=== PATIENT | male | born 1950 | race Caucasian/White ===

== ENCOUNTER 2019-01-17 15:14 | Inpatient (IN) | payer MEDICARE ==
[2019-01-17] MEDS: NA CHLORIDE 0.9% 250 ML IV PRN ×2 (16:32→17:14)
[2019-01-17] MEDS ORDERED: AZITHROMYCIN IV 500 MG in NA CHLORIDE 0.9% 250 ML IVPB SCH (17:00)
[2019-01-17] MEDS ORDERED: CEFTRIAXONE 1 GM/NS 50 ML 1 GM/50 ML BAG IV SCH (17:00)
[2019-01-17 17:12] VITALS: BMI 19.2
[2019-01-17 17:12] LABS: Absolute Lymphocytes (CBC) 0.4 K/uL (0.7-4.9); Basophils % 0.1 % (0-1.3); Hematocrit 46.6 % (39.6-49.0); MPV 9.3 fL (7.6-11.3); RBC Red Blood Cell Count 4.65 M/uL (4.33-5.43)
--- NOTE | 2019-01-17 17:16 | RAD REPORT ---
EXAM DESCRIPTION: RAD - Chest Single View - 01/17/2019 5:05 pm CLINICAL HISTORY: Pneumonia COMPARISON: October 26 TECHNIQUE: AP portable chest image was obtained 1703 hour . FINDINGS: Dense consolidation is present in the left midlung field. Scattered interstitial and alveo lar opacities are present in the lung parenchyma along the superior and inferior margins. Right lung field is clear of acute infiltrate. Focal upper lung field scarring changes are stable. Heart and vasculature are normal. No measurable pleural effusion and no pneumothorax. No acute bony abnormality seen. No acute aortic findings suspected. IMPRESSION: Moderately large densely consolidated pneumonia left midlung field.
[2019-01-17 17:23] LABS: Albumin 3.2 g/dL (3.4-5.0); Bilirubin Total 1.2 mg/dL (0.2-1.0); Potassium 3.7 mmol/L (3.5-5.1); Protein, Total 7.4 g/dL (6.4-8.2)
[2019-01-17] MEDS: CEFTRIAXONE/SWI 1gm 1 GM/10 ML SYR IV SCH (17:49)
[2019-01-17] MEDS: ALBUTEROL 2.5 MG/3 ML NEB SOL NEB SCH ×3 (18:00→20:00)
[2019-01-17] MEDS: IPRATROPIUM BROM 0.5MG/2.5ML NEB SCH ×3 (18:00→20:00)
[2019-01-17] MEDS ORDERED: INFLUENZA VACCINE (for 3y+) 0.5 ML DOSE IMVAC ONE (19:00)
[2019-01-17] MEDS ORDERED: POTASSIUM CL SA 10 MEQ TAB PO ONE (20:00)
[2019-01-17] MEDS: NA CHLORIDE 0.9% 1,000 ML IV SCH (20:29)
[2019-01-17] MEDS: HEPARIN 5000 UNIT/ML 1 ML VIAL SQ SCH (20:30)
[2019-01-17 20:47] LABS: Blood Morphology Comment NOT SEEN (NOT SEEN); Platelet Estimate ADEQ
[2019-01-17 21:07] LABS: Urine Appearance CLEAR; Urine Bilirubin NEGATIVE (NEG); Urine Blood 2+ (NEG); Urine Color DK YELLOW; Urine Glucose NEGATIVE (NEG); Urine Protein 1+ (NEG); Urine Specific Gravity 1.025 (1.005-1.030)
[2019-01-17 21:20] LABS: Urine Bacteria <20 /HPF (NONE SEEN); Urine Culture Reflex Order REFLEXED
[2019-01-18] MEDS: ALBUTEROL 2.5 MG/3 ML NEB SOL NEB SCH ×4 (01:30→20:00)
[2019-01-18] MEDS: IPRATROPIUM BROM 0.5MG/2.5ML NEB SCH ×4 (01:30→19:22)
[2019-01-18] MEDS: NA CHLORIDE 0.9% 250 ML IV PRN ×3 (02:30→03:42)
[2019-01-18] MEDS ORDERED: Levofloxacin500mg IV 500 MG/100 ML BAG IV ONE ×2 (02:32→02:34)
[2019-01-18] MEDS ORDERED: ACETAMINOPHEN 500 MG TAB ONE (02:38)
[2019-01-18] MEDS ORDERED: GUAIFENESIN/DM 5 ML UCUP PO PRN (02:38)
[2019-01-18] MEDS ORDERED: ACETAMINOPHEN 500 MG TAB PO PRN (02:38)
[2019-01-18] MEDS: NA CHLORIDE 0.9% 1,000 ML IV SCH ×3 (04:00→18:30)
[2019-01-18] MEDS: CEFTRIAXONE/SWI 1gm 1 GM/10 ML SYR IV SCH ×2 (04:51→16:28)
--- NOTE | 2019-01-18 04:53 | HP ---
Date of Admission: 01/17/2019 Chief Complaint: Chest pain. History Of Present Illness: This is a 68-year-old male patient came into office with his today as he was not feeling good. Patient reported that he is having pain on the left side of his chest in the left parasternal region and left mid chest. This pain is going on for last 2 days and he report s that the pain gets worse with breathing, and every time he breathes, he has this pain. Denies any fall or injury. No rash. He is having some cough, congestion, coughing up some mucus, does not know what color, and also has fever, chills, and has generalized weakness going on for last 2 days. Afte r I evaluated him, I was concerned about possibility of pneumonia and he was admitted to the hospital . Review of Systems: Constitutional: As mentioned above. Respiratory: As mentioned above. All other systems reviewed and negative. Medications: List reviewed. Allergies: HYDROCODONE. Past Medical History: Significant for COPD, hypertension, hyperlipidemia. Past Surgical History: Cholecystectomy, back surgery. Family History: Significant for father had COPD, lung cancer. Mother had stroke and dementia. Social History: , lives at home with . Positive for smoking. Use of alcohol negative. Physical Examination: Vital Signs: When I saw him at office, his weight was 139.6 pounds, temperature 97.1, blood pressure 100/65, heart rate 93, and respiratory rate 18. Upon admission, his blood pressure was 80/46, oxyge n saturation 93%, height 5 feet 11 inches, weight 138 pounds. General: Patient appears weaker than normal, not in any respiratory distress. HEENT: Head atraumatic, normocephalic. Conjunctivae nonerythematous. Sclerae white. Mouth, no thr ush or edema noted. Ears/Nose, no mass, lesion, discharge noted. Neck: Supple. No JVD, lymph nodes, bruit, thyromegaly noted. Lungs: Slightly diminished air entry in the left lung oh compared to right side. Not using any accessory muscles of respiration. Heart: Normal heart sounds, no murmur or gallop. Abdomen: Soft, bowel sounds normal. No guarding, rigidity, tenderness, mass, hepatosplenomegaly, di stention, or bruit noted. Extremities: No leg edema. No calf tenderness. Skin: No rash, ulcer, cellulitis. Lymphatics: No lymph node enlargement in neck, supraclavicular, infraclavicular region. Neuro: No focal neurological deficit. Chest: Unremarkable. External Genitalia: Deferred. Rectal: Deferred. Laboratory Data: Sodium 137, potassium 3.7, chloride 102, bicarb 24, BUN 42, creatinine 2.99, glucos e 108. Lactic acid 3.3. Liver function tests unremarkable. Procalcitonin 22.33. White count 19.9, hemoglobin 16, platelets 182. Chest x-ray shows moderately large densely consolidated pneumonia, le ft midlung field. Impression: 1.Pneumonia. 2.Acute renal failure. 3.Volume depletion. 4.Rule out sepsis. 5.Chronic obstructive pulmonary disease, with acute exacerbation. 6.Hypertension. 7.Hyperlipidemia. Plan: Admit patient to hospital for further evaluation and management of this problem. Patient is a ppropriate for inpatient and is expected to spend 2 midnights in hospital. We will go ahead and give IV fluid per order. Soon after his arrival to hospital, total 500 cc of IV fluid bolus was given an d we will continue IV fluid per order. Blood culture was done. We will follow up on culture results . We will go ahead and start empiric antibiotic, ceftriaxone and azithromycin. Home medications carlton l be continued per order. Nebulizer treatment will be given. We will repeat blood work tomorrow mor radha. DVT prophylaxis with heparin will be given per order. I did go back to hospital this evening and explained to patient regarding plan of treatment as well as all the test results. Patient's ches t pain that he presented with is due to pleurisy and that should improve as pneumonia gets better. D etails and plan of treatment discussed with patient. TEJA/MODL Voice ID: [id number]
[2019-01-18 06:18] LABS: Potassium 3.5 mmol/L (3.5-5.1)
[2019-01-18 06:45] LABS: Absolute Lymphocytes (CBC) 0.3 K/uL (0.7-4.9); Basophils % 0.3 % (0-1.3); Lymphocytes % 2.6 % (15.3-44.8); MPV 9.4 fL (7.6-11.3); RBC Red Blood Cell Count 4.14 M/uL (4.33-5.43)
[2019-01-18] MEDS ORDERED: METOPROLOL TARTRATE 5 MG/5 ML INJ IV STA (08:35)
[2019-01-18] MEDS ORDERED: POTASSIUM CL SA 10 MEQ TAB PO ONE (09:00)
[2019-01-18] MEDS ORDERED: ALPRAZOLAM 0.25 MG TABLET PO PRN (09:14)
[2019-01-18] MEDS: METHYLPREDNISOLONE 40 MG INJ IV SCH ×3 (09:24→19:41)
[2019-01-18] MEDS: HEPARIN 5000 UNIT/ML 1 ML VIAL SQ SCH ×2 (09:24→19:53)
[2019-01-18] MEDS ORDERED: IPRATROPIUM BROM 0.5MG/2.5ML NEB ONE (10:44)
[2019-01-18 10:53] LABS: Blood Morphology Comment NOT SEEN (NOT SEEN)
[2019-01-18 10:54] LABS: Platelet Estimate ADEQ
[2019-01-18] MEDS ORDERED: METOPROLOL TARTRATE 5 MG/5 ML INJ IV PRN (10:57)
--- NOTE | 2019-01-18 11:01 | EKG ---
Test Date: 2019-01-18 Test Time: 08:27:16 Blast Furnace Helper: ARSENIO MEASUREMENT RESULTS: Intervals: Rate: 165 OR: 122 QRSD: 66 QT: 292 QTc: 483 [place]: P: 84 OR: 122 QRS: -55 T: 99 INTERPRETIVE STATEMENTS: Sinus tachycardia Left anterior fascicular block Inferior infarct, age undetermined T wave abnormality, consider lateral ischemia Abnormal ECG Compared to ECG 07/16/2013 07:56:55 Left anterior fascicular block now present Myocardial infarct finding now present T-wave abnormality now present Possible ischemia now present Sinus rhythm no longer present Electronically Signed On 01-18-19 11:00:56 CDT by Chance Evans
--- NOTE | 2019-01-18 11:01 | EKG ---
Test Date: 2019-01-18 Test Time: 08:30:53 Recreation Therapy Teacher: ARSENIO MEASUREMENT RESULTS: Intervals: Rate: 163 UT: 120 QRSD: 66 QT: 296 QTc: 487 [place]: P: 91 UT: 120 QRS: -50 T: 101 INTERPRETIVE STATEMENTS: Sinus tachycardia Left anterior fascicular block Inferior infarct, age undetermined ST & T wave abnormality, consider lateral ischemia Abnormal ECG Compared to ECG 01/18/2019 08:27:16 ST (T wave) deviation now present T-wave abnormality no longer present Myocardial infarct finding still present Possible ischemia still present Electronically Signed On 01-18-19 11:00:51 CDT by Chance Evans
--- NOTE | 2019-01-18 12:02 | RAD REPORT ---
EXAM DESCRIPTION: [facility] Single View01/18/2019 11:48 am CLINICAL HISTORY: Shortness of breath COMPARISON: January 17 FINDINGS: Mild worsening in the extensive left lung consolidation Right lung appears clear Lungs are hyperaerated Heart is normal size IMPRESSION: Mild worsening in the left lung consolidation consistent with pneumonia
[2019-01-18] MEDS ORDERED: PROPOFOL 1,000 MG/100 ML VIAL IV ONE (12:14)
[2019-01-18] MEDS ORDERED: MIDAZOLAM HCL 2 MG/2 ML INJ ONE (12:16)
[2019-01-18] MEDS ORDERED: Pharmacy Consult 1 EA XX PRN (12:16)
[2019-01-18] MEDS ORDERED: FENTANYL CITR 100 MCG/2 ML IV ONE (12:24)
--- NOTE | 2019-01-18 12:28 | ECHO ---
HEIGHT: 5 ft 11 in WEIGHT: 138 lb 0 oz DATE OF STUDY: 01/18/[address]: Jaswinder Do MD 2-DIMENSIONAL: YES M.MODE: YES DOPPLER: YES COLOR FLOW: YES TDS: YES PORTABLE: YES DEFINITY: NO BUBBLE STUDY: NO DIAGNOSIS: SUPRAVENTRICULAR TACHYCARDIA, SHORTNESS OF BREATH CARDIAC HISTORY: CATHERIZATION: NO SURGERY: NO PROSTHETIC VALVE: NO PACEMAKER: NO MEASUREMENTS (cm) DIASTOLIC (NORMALS) SYSTOLIC (NORMALS) IVSd 1.1 (0.6-1.2) LA Diam 2.6 (1.9-4.0) LVEF 60-69% LVIDd 3.7 (3.5-5.7) LVIDs 2.9 (2.0-3.5) %FS 23% LVPWd 1.1 (0.6-1.2) Ao Diam 2.5 (2.0-3.7) 2 DIMENSIONAL ASSESSMENT: RIGHT ATRIUM: NORMAL LEFT ATRIUM: RIGHT VENTRICLE: NORMAL LEFT VENTRICLE: TRICUSPID VALVE: NORMAL MITRAL VALVE: PULMONIC VALVE: NORMAL AORTIC VALVE: PERICARDIAL EFFUSION: NONE AORTIC ROOT: LEFT VENTRICULAR WALL MOTION: NORMAL DOPPLER/COLOR FLOW: IMPAIRED LEFT VENTRICULAR RELAXATION. TRACE TRICUSPID REGURGITATION. NORMAL RIGHT VENTRICULAR SYSTOLIC PRESSURE. COMMENTS: NORMAL 2D ECHOCARDIOGRAM. IMPAIRED LEFT VENTRICULAR RELAXATION. TRACE TRICUSPID REGURGITATION. SINUS TACHYCARDIA 140 BEATS PER MINUTE. TECHNOLOGIST: Kelvin MENDEZ
[2019-01-18] MEDS ORDERED: LORazepam 2 MG/ML VIAL IV ONE (12:34)
--- NOTE | 2019-01-18 12:49 | P.CNS ---
Date of Consult: 01/18/19 Reason for Consult: Respiratory failure with pneumonia Chief Complaint: Shortness of breath History of Present Illness: Patient is 68 years of age became worse past 2 days started having worsening shortness of breath chest discomfort has a history of COPD admitted to the hospital with respiratory failure is currently on BiPAP was found to have a dense consolidation in the left mid zone. Patient is compliant with his bronchodilators takes Advair and Spiriva still smokes very anxious tachypneic on a BiPAP Allergies hydrocodone Adverse Reaction (Verified 01/17/19 18:06) Nausea/Vomiting Home Medications: Metoprolol Tartrate [Lopressor*] 1 tab PO BID 07/15/13 Tiotropium [place] [Spiriva] 1 spray IH DAILY #1 07/17/13 Amlodipine [Norvasc] 10 mg PO DAILY 01/17/19 Cyanoco/FA/Pyri [Folbic] 1 tab PO DAILY 01/17/19 Fluticasone/Salmeterol [Advair 250-50 Diskus] 1 each IH BID 01/17/19 Ranitidine [Zantac] 150 mg PO DAILY PRN 01/17/19 - Past Medical/Surgical History Diabetic: No -: COPD -: Hypertension -: Back Surgery 2000 - Social History Smoking Status: Current every day smoker Alcohol use: Yes CD- Drugs: No Caffeine use: Yes Place of Residence: Home Review of Systems General: Malaise ENT: Nose Discharge Respiratory: Shortness of Breath Cardiovascular: Chest Pain Physical Examination Temp Pulse Resp BP Pulse Ox 97.5 F 134 H 34 H 107/66 97 01/18/19 04:00 01/18/19 10:00 01/18/19 10:00 01/18/19 10:00 01/18/19 10:00 General: Alert, Moderate distress Neck: 2+ carotid pulse no bruit Respiratory: Clear to auscultation bilaterally, Crackles/rales (Crackles on the left side) Cardiovascular: No edema, Regular rate/rhythm, Normal S1 S2 Laboratory Data (last 24 hrs) 01/18/19 06:26: WBC 12.8 H D, Hgb 14.4, Hct 41.0, Plt Count 156 01/18/19 05:25: Sodium 135 L, Potassium 3.5, BUN 41 H, Creatinine 2.00 H, Glucose 101 01/17/19 16:50: Sodium 137, Potassium 3.7, BUN 42 H, Creatinine 2.99 H, Glucose 108 H, Magnesium 2.0, Total Bilirubin 1.2 H, AST 37, ALT 32, Alkaline Phosphatase 96 01/17/19 16:50: WBC 19.9 H, Hgb 16.0, Hct 46.6, Plt Count 182 - Problems (1) Respiratory failure Current Visit: Yes Status: Acute Plan: Patient is in respiratory failure with hypoxemia hypercapnia I suspect that he has respiratory alkalosis with a metabolic acidosis. Also has a dense consolidation in the left mid zone trial of fentanyl Ativan he may need to be intubated patient's white count is elevated creatinine is also high I have added vancomycin maximize bronchodilator therapy patient is on IV fluids present at the bedside all laboratory data and x-rays reviewed Qualifiers: Chronicity: acute on chronic
[2019-01-18] MEDS ORDERED: VANCOMYCIN 1.25 GM in NA CHLORIDE 0.9% 250 ML IVPB SCH (13:00)
[2019-01-18] MEDS ORDERED: NA CHLORIDE 0.9% 250 ML IV PRN (13:01)
--- NOTE | 2019-01-18 13:01 | P.OP ---
Date of Service: 01/18/19 (Endotracheal intubation size 7 2) Findings and Operative Technique Patient is 68 years of age admitted with respiratory failure respiratory acidosis left-sided pneumonia and developed respiratory distress failed BiPAP hence the reason for intubation After informing the patient and the family members he was intubated using a size 7-1/2 endotracheal tube intubation was accomplished on 1st attempt without any difficulty difficult to vocal of visualize the vocal cords chest x-ray ordered sputum sent for cultures patient we placed on a vent protocol
[2019-01-18] MEDS: ARFORMOTEROL TARTRATE 15 MCG/2 ML VIAL.NEB NEB SCH ×2 (13:24→19:22)
[2019-01-18 14:28] LABS: Arterial Blood Carboxyhemoglob 0.8 % (0-1.5); Blood Gas Oxyhemoglobin 90.5 % (94-97); Blood O2 Saturation 91.8 % (92-98.5)
[2019-01-18 14:31] LABS: Arterial Blood Carboxyhemoglob 0.6 % (0-1.5); Blood Gas Oxyhemoglobin 97.4 % (94-97); Blood O2 Saturation 98.8 % (92-98.5)
--- NOTE | 2019-01-18 14:42 | RAD REPORT ---
EXAM DESCRIPTION: RAD - Chest Single View - 01/18/2019 1:40 pm CLINICAL HISTORY: Respiratory failure, intubation COMPARISON: January 18 TECHNIQUE: AP portable chest image was obtained 1336 hours . FINDINGS: Endotracheal tube has been placed. Tip of the endotracheal tube is top of the aortic arch. This is 3 cm above the bravo. NG tube extends below the diaphragm, off the field of view. Dense parenchymal opacification is present in the mid and lower left lung field. Scarring changes wit hout infiltrate noted on the right. Heart and vasculature are normal. No measurable pleural effusion and no pneumothorax. No acute bony a bnormality seen. No acute aortic findings suspected. IMPRESSION: Endotracheal tube in place in good position. NG tube tip extends below the diaphragm, off the field of view. Dense left lung parenchymal opacification stable from earlier study.
[2019-01-18 15:03] LABS: Absolute Lymphocytes (CBC) 0.3 K/uL (0.7-4.9); Basophils % 0.2 % (0-1.3); Hematocrit 42.2 % (39.6-49.0); Lymphocytes % 2.6 % (15.3-44.8); MPV 9.4 fL (7.6-11.3); RBC Red Blood Cell Count 4.16 M/uL (4.33-5.43)
[2019-01-18 15:21] LABS: Potassium 4.5 mmol/L (3.5-5.1)
--- NOTE | 2019-01-18 15:28 | CON ---
Chief Complaint: Not feeling good. Reason For Hospitalization: Pneumonia. Reason For Cardiology Consult: Tachycardia. History Of Present Illness: Mr. Lindquist is 68. He has a history of obstructive lung disease. He quinonez s been feeling ill for several days. He may have had a viral illness preceding it, but then develope d signs and symptoms of pneumonia. Chest x-ray is consistent with pneumonia in the left lung. Dr. Anup rodriguez has placed him in the hospital. He is on intravenous antibiotics. His heart rate is often in th e 140s and 160s. It is always sinus tach. There is no atrial fibrillation or SVT. Has no previous history of heart trouble, heart rhythm trouble. He is a regular cigarette smoker with obstructive holly ng disease. He does not have diabetes. His chest x-ray shows in the mid of the left lung, so probab ly the left lower lobe, there is either mass or an infiltrate or it is both. Chest x-ray from just a few months ago does not show mass so hopefully we are dealing with pneumonia. The other findings on the x-ray are hyperinflation, everything is consistent with COPD. Medications: Patient's home medications have been metoprolol 25 b.i.d., tiotropium, ranitidine, mult ivitamin, amlodipine, and Advair. Physical Examination: General: He is alert, oriented, pleasant, not in distress. He is wearing a BiPAP mask. Vital Signs: Heart rate is 130, blood pressure 107/66, 130/70, 146/128. His O2 saturation is 97% on BiPAP, 65% FiO2. Impression: The patient's tachycardia is physiologic related to his pneumonia and chronic obstructiv e pulmonary disease. We should probably try and slow his heart rate down a little bit. Make sure he does not have thyroid dysfunction contributing to all of this and otherwise treat him for pneumonia w ith sepsis. SH/MODL Voice ID: [id number] Report ID: [id number]
[2019-01-18 15:52] LABS: Blood Morphology Comment NOT SEEN (NOT SEEN); Platelet Estimate ADEQ; Urine White Blood Cell Casts OK
[2019-01-18] MEDS ORDERED: SODIUM BICARB 50 MEQ/50ML VIAL IV ONE (16:00)
[2019-01-18] MEDS: THIAMINE 200 MG/2 ML INJ IVP SCH (16:28)
[2019-01-18] MEDS ORDERED: CISATRACURIUM INJECTION 2 MG/ML (10 ML Vial) IV PRN (17:04)
[2019-01-18] MEDS: PROPOFOL 1,000 MG/100 ML VIAL IV PRN (17:16)
[2019-01-18] MEDS: LORazepam 2 MG/ML VIAL IV PRN (19:14)
[2019-01-18] MEDS: FAMOTIDINE 20 MG/2 ML VIAL IV SCH (19:53)
[2019-01-18 20:01] LABS: Arterial Blood Carboxyhemoglob 0.6 % (0-1.5); Blood Gas Oxyhemoglobin 92.3 % (94-97); Blood O2 Saturation 93.7 % (92-98.5)
[2019-01-18] MEDS: FENTANYL CITR 100 MCG/2 ML IV PRN (21:01)
--- NOTE | 2019-01-19 00:01 | PN ---
Date of Progress Note: 01/18/2019 Subjective: Patient was seen this morning for followup. During night time around 2:30 a.m. or so, corinne hansen had respiratory distress, tachypnea, tachycardia, and he had a hard time maintaining adequate oxygenation with nasal cannula oxygen and then Ventimask, so BiPAP was started and that actually help ed him. This morning when I saw him, his was at bedside, patient was on BiPAP. Objective: Vital Signs: Reviewed. HEENT: Unremarkable. Lungs: Bilateral good equal air entry with some bronchial breathing and diminished air entry in the left lower lung field. Heart: Sounds normal. Abdomen: Soft. Bowel sounds normal. No guarding, rigidity, tenderness, or distention. Extremities: No leg edema. Laboratory Data: White count 12.8, hemoglobin 14.4, platelets 156. Sodium 135, potassium 3.5, chlor isaak 105, bicarb 19, BUN 41, creatinine 2, glucose 101. Impression: 1.Pneumonia. 2.Acute respiratory failure with hypoxia. 3.Acute renal failure. 4.Volume depletion. 5.Acute exacerbation of chronic obstructive pulmonary disease. Plan: After I saw patient, his condition deteriorated and he was transferred to the ICU with worseni ng of respiratory status and respiratory failure problem. Dr. Rai and Dr. Evans from Pulmonary and Cardiology service respectively were consulted. IV steroid was started. IV antibiotics were co ntinued. After he arrived in the ICU, Dr. Rai intubated him due to respiratory failure. Echoca rdiogram shows normal ejection fraction. Patient did receive 1 dose of IV Lopressor on the floor yola or to arrival to the ICU because of sinus tachycardia problem with heart rate around 140 to 160 per m inute. I did go back to the ICU this evening, was at bedside. Details were discussed this afte rncrystal. We did repeat blood work and chest x-ray, and results were reviewed with the patient's . We will see him tomorrow for followup. We will continue heparin for DVT prophylaxis. We will use A tivan on a p.r.n. basis for agitation. Patient drinks alcohol, as we understand, about 2 to 3 drinks a day and the last drink was on Thursday, so timing-العراقي, it is appropriate timing for alcohol withdra wal, but amount-العراقي, I am not convinced that, that is definitely the case, but we need to keep that in back of our mind as a possibility of alcohol withdrawal also could be contributing to current prob lems of tachycardia and tachypnea. I will see him tomorrow for followup. TEJA/MUNA Voice ID: [id number] Report ID: [id number]
[2019-01-19] MEDS: METHYLPREDNISOLONE 40 MG INJ IV SCH ×4 (00:46→16:31)
[2019-01-19] MEDS: ALBUTEROL 2.5 MG/3 ML NEB SOL NEB SCH ×4 (02:00→20:00)
[2019-01-19] MEDS: IPRATROPIUM BROM 0.5MG/2.5ML NEB SCH ×4 (02:00→20:00)
[2019-01-19] MEDS: NA CHLORIDE 0.9% 1,000 ML IV SCH ×3 (03:01→20:01)
[2019-01-19] MEDS: PROPOFOL 1,000 MG/100 ML VIAL IV PRN ×2 (03:02→22:29)
[2019-01-19] MEDS: LORazepam 2 MG/ML VIAL IV PRN ×4 (03:10→23:23)
[2019-01-19] MEDS: HALOPERIDOL LACT 5 MG/ML INJ IV PRN (04:16)
[2019-01-19 05:16] LABS: Absolute Lymphocytes (CBC) 0.2 K/uL (0.7-4.9); Basophils % 0.2 % (0-1.3); Hematocrit 38.2 % (39.6-49.0); Lymphocytes % 1.9 % (15.3-44.8); MPV 9.7 fL (7.6-11.3); RBC Red Blood Cell Count 3.82 M/uL (4.33-5.43)
[2019-01-19] MEDS: CEFTRIAXONE/SWI 1gm 1 GM/10 ML SYR IV SCH ×2 (05:29→16:31)
[2019-01-19 05:40] LABS: Potassium 4.4 mmol/L (3.5-5.1)
[2019-01-19] MEDS: FENTANYL CITR 100 MCG/2 ML IV PRN ×2 (06:29→16:29)
[2019-01-19] MEDS: ARFORMOTEROL TARTRATE 15 MCG/2 ML VIAL.NEB NEB SCH ×2 (07:26→20:00)
--- NOTE | 2019-01-19 08:08 | P.PN ---
Subjective Date of Service: 01/19/19 Chief Complaint: Respiratory failure possible alcohol withdrawal Patient's condition is stable he is on low-dose propofol no change cultures pending Review of Systems is unable to be obtained Physical Examination - Vital Signs Temperature: 99 F Blood Pressure: 102/51 Pulse: 101 Respirations: 30 Pulse Ox (%): 95 - Physical Exam General: Unresponsive Respiratory: Expiratory wheezes Cardiovascular: No edema, Normal S1 S2 Gastrointestinal: Normal bowel sounds, Soft and benign - Studies Laboratory Data (last 24 hrs) 01/19/19 05:00: Magnesium Cancelled 01/19/19 04:47: WBC 13.1 H, Hgb 13.0 L, Hct 38.2 L, Plt Count 159 01/19/19 04:47: Sodium 140, Potassium 4.4, BUN 40 H, Creatinine 1.57 H, Glucose 110 H, Magnesium 2.0 01/18/19 14:46: Sodium 136, Potassium 4.5, BUN 39 H, Creatinine 1.90 H, Glucose 95 01/18/19 14:46: WBC 11.9 H, Hgb 14.6, Hct 42.2, Plt Count 173 01/18/19 06:26: WBC 12.8 H D, Hgb 14.4, Hct 41.0, Plt Count 156 Microbiology Data (last 24 hrs): 01/17/19 17:27 Blood - Blood Anaerobic Blood Culture - Final 01/17/19 22:54 Sputum Gram Stain - Final 01/18/19 10:39 Nasopharnyx Influenza Type A Antigen Screen - Final 01/18/19 10:39 Nasopharnyx Influenza Type B Antigen Screen - Final Assessment & Plan - Problems (Diagnosis) (1) Respiratory failure Current Visit: Yes Status: Acute Plan: Patient on a ventilator chest x-ray looks worse extensive consolidation on the left side patient is an alcoholic with COPD cultures pending labs reviewed renal function has improved increase IV fluids continue with present antibiotics I have added vitamin-C continue with IV thymine start tube feeds wean off propofol continue with bronchodilators Qualifiers: Chronicity: acute on chronic
[2019-01-19] MEDS: FAMOTIDINE 20 MG/2 ML VIAL IV SCH ×2 (08:56→20:03)
[2019-01-19] MEDS: THIAMINE 200 MG/2 ML INJ IVP SCH (08:56)
[2019-01-19] MEDS: HEPARIN 5000 UNIT/ML 1 ML VIAL SQ SCH ×2 (08:56→20:03)
[2019-01-19] MEDS: VANCOMYCIN 1.25 GM in NA CHLORIDE 0.9% 250 ML IVPB SCH (08:57)
[2019-01-19] MEDS ORDERED: Levofloxacin 250mg IV 250 MG/50 ML BAG IV SCH (09:00)
--- NOTE | 2019-01-19 09:06 | RAD REPORT ---
EXAM DESCRIPTION: [facility] Single View01/19/2019 6:58 am CLINICAL HISTORY: Shortness of breath COMPARISON: January 18, 2019 FINDINGS: No significant change in the extensive left lung alveolar opacities with volume loss Mild right lung opacities suspected. The heart is normal size Endotracheal tube with its tip well above the bravo. Nasogastric tube within the stomach IMPRESSION: No significant change in extensive left lung opacities consistent with pneumonia. There is a component of atelectasis present as well.
[2019-01-19] MEDS: ASCORBIC ACID 500 MG TABLET PO SCH ×2 (11:21→20:05)
[2019-01-19] MEDS ORDERED: ACETAMINOPHEN 325 MG TABLET PO PRN (17:17)
[2019-01-20] MEDS: HALOPERIDOL LACT 5 MG/ML INJ IV PRN ×2 (00:03→13:36)
[2019-01-20] MEDS: METHYLPREDNISOLONE 40 MG INJ IV SCH ×2 (00:34→08:07)
--- NOTE | 2019-01-20 00:45 | PN ---
Date of Progress Note: 01/19/2019 Subjective: Patient was seen this morning for followup. No new complaints problems reported by lizzeth ent to ICU nurse. He was in ICU lying in bed on ventilator. His breathing was lot more comfortable. Tachypnea and tachycardia both have improved overnight. Intake and output records reviewed. Objective: Vital Signs: Reviewed. HEENT: Unremarkable. Lungs: Bilateral good equal air entry. Clear to auscultation except some rales noted on the left si de. Heart: Sounds normal. Abdomen: Soft. Bowel sounds normal. No guarding, rigidity, tenderness, or distention. Extremities: No leg edema. BLANKET WINDER HELPER: Patient remains sleepy, does not respond to any verbal command, as he is on propofol. Laboratory Data: White count 13.1, hemoglobin 13, platelets 151. Sodium 140, potassium 4.4, chlorid e 109, bicarb 18, BUN 40, creatinine 1.57, glucose 110. Procalcitonin 42.16. Impression: 1.Acute respiratory failure with hypoxia. 2.Acute exacerbation of chronic obstructive pulmonary disease. 3.Pneumonia. 4.Acute renal failure. 5.Volume depletion. 6.Supraventricular tachycardia. Plan: Patient had a short run of supraventricular tachycardia during nighttime. When I saw him, he was in sinus rhythm. He was on ventilator with FiO2 50%. We will continue to follow up with cardiol ogist and instruments sales representative. Continue current nebulizer treatment, steroids, antibiotics, DVT prophylaxi s. We will start the patient on tube feeding and appropriate instructions given to ICU nursing staff . Details were discussed with the patient's . We will see him tomorrow for followup. TEJA/MODL Voice ID: [id number] Report ID: [id number]
[2019-01-20] MEDS: FENTANYL CITR 100 MCG/2 ML IV PRN (01:59)
[2019-01-20] MEDS: ALBUTEROL 2.5 MG/3 ML NEB SOL NEB SCH ×4 (02:00→20:00)
[2019-01-20] MEDS: IPRATROPIUM BROM 0.5MG/2.5ML NEB SCH ×4 (02:00→20:00)
[2019-01-20] MEDS: NA CHLORIDE 0.9% 1,000 ML IV SCH (04:08)
[2019-01-20] MEDS: CEFTRIAXONE/SWI 1gm 1 GM/10 ML SYR IV SCH ×2 (04:23→16:53)
[2019-01-20 05:20] LABS: Absolute Lymphocytes (CBC) 0.2 K/uL (0.7-4.9); Basophils % 0.1 % (0-1.3); Hematocrit 38.1 % (39.6-49.0); Lymphocytes % 0.9 % (15.3-44.8); MPV 9.4 fL (7.6-11.3); RBC Red Blood Cell Count 3.82 M/uL (4.33-5.43)
[2019-01-20 05:53] LABS: Magnesium 2.6 mg/dL (1.8-2.4); Potassium 3.6 mmol/L (3.5-5.1)
[2019-01-20] MEDS ORDERED: POTASSIUM 25 MEQ EFFERV TAB PO ONE (06:04)
[2019-01-20] MEDS: LORazepam 2 MG/ML VIAL IV PRN ×2 (06:10→13:09)
[2019-01-20] MEDS: ARFORMOTEROL TARTRATE 15 MCG/2 ML VIAL.NEB NEB SCH ×2 (07:38→20:00)
[2019-01-20] MEDS: FAMOTIDINE 20 MG/2 ML VIAL IV SCH ×2 (08:07→21:10)
[2019-01-20] MEDS: THIAMINE 200 MG/2 ML INJ IVP SCH (08:07)
[2019-01-20] MEDS: HEPARIN 5000 UNIT/ML 1 ML VIAL SQ SCH ×2 (08:08→21:11)
[2019-01-20] MEDS: Levofloxacin500mg IV 500 MG/100 ML BAG IV SCH (08:08)
[2019-01-20] MEDS: VANCOMYCIN 1.25 GM in NA CHLORIDE 0.9% 250 ML IVPB SCH (08:08)
[2019-01-20] MEDS: ASCORBIC ACID 500 MG TABLET PO SCH ×2 (08:09→21:11)
--- NOTE | 2019-01-20 08:26 | RAD REPORT ---
EXAM DESCRIPTION: RAD - Chest Single View - 01/20/2019 5:52 am CLINICAL HISTORY: pneumonia Chest pain. COMPARISON: Chest Single View dated 01/19/2019; Chest Single View dated 01/18/2019; Chest Single View dated 01/18/2019; Chest Single View dated 01/17/2019 FINDINGS: Portable technique limits examination quality. Tip of the ET tube is above the bravo. Tip of the NG tube is at the level of the distal third of the esophagus. Extensive left-sided airspace opacity is unchanged. The heart is upper limit normal in si ze.
[2019-01-20] MEDS: PROPOFOL 1,000 MG/100 ML VIAL IV PRN ×2 (09:45→18:46)
[2019-01-20 10:03] LABS: Blood Morphology Comment NOT SEEN (NOT SEEN); Platelet Estimate ADEQ
[2019-01-20 10:11] LABS: Toxic Granulation 2+
--- NOTE | 2019-01-20 11:46 | P.PN ---
Subjective Date of Service: 01/20/19 Chief Complaint: Respiratory failure possible alcohol withdrawal Pseudomonas pneumonia Unable to wean patient off the propofol still on 20 mics hemodynamically stable Pseudomonas isolated Review of Systems is unable to be obtained Physical Examination - Vital Signs Temperature: 98.5 F Blood Pressure: 118/59 Pulse: 107 Respirations: 23 Pulse Ox (%): 95 - Physical Exam General: Unresponsive HEENT: Atraumatic Neck: Supple Respiratory: Crackles/rales (Crackles on the left side), Expiratory wheezes Cardiovascular: Regular rate/rhythm - Studies Laboratory Data (last 24 hrs) 01/20/19 04:48: WBC 25.6 H* D, Hgb 12.8 L, Hct 38.1 L, Plt Count 130 L 01/20/19 04:48: Sodium 143, Potassium 3.6, BUN 39 H, Creatinine 1.26, Glucose 170 H, Magnesium 2.6 H D Microbiology Data (last 24 hrs): 01/17/19 20:00 Clean Catch Urine [place] Count - Final 01/17/19 20:00 Clean Catch Urine - Final No growth. 01/17/19 22:54 Sputum Gram Stain - Final Assessment & Plan - Problems (Diagnosis) (1) Respiratory failure Current Visit: Yes Status: Acute Plan: Patient is 68 years of age admitted with respiratory failure secondary to Pseudomonas pneumonia and alcohol withdrawal chest x-ray shows significant pneumonia on the left side labs reviewed renal function is improving pro calcitonin level declining white count elevated will Dc steroids patient is on tube feeds Dc IV fluids blood cultures and negative patient can only tolerate pressure control mode Qualifiers: Chronicity: acute on chronic (2) Pneumonia Current Visit: Yes Status: Acute Plan: Continue with levofloxacin Dc Rocephin Qualifiers: Pneumonia type: due to Pseudomonas
[2019-01-21] MEDS: PROPOFOL 1,000 MG/100 ML VIAL IV PRN ×3 (01:30→15:19)
[2019-01-21] MEDS: IPRATROPIUM BROM 0.5MG/2.5ML NEB SCH ×4 (02:05→19:40)
[2019-01-21] MEDS: ALBUTEROL 2.5 MG/3 ML NEB SOL NEB SCH ×4 (02:05→19:40)
[2019-01-21] MEDS: CEFTRIAXONE/SWI 1gm 1 GM/10 ML SYR IV SCH (04:48)
[2019-01-21] MEDS: FENTANYL CITR 100 MCG/2 ML IV PRN ×4 (04:49→20:20)
[2019-01-21 05:55] LABS: Magnesium 2.7 mg/dL (1.8-2.4); Potassium 3.4 mmol/L (3.5-5.1)
[2019-01-21] MEDS ORDERED: POTASSIUM 25 MEQ EFFERV TAB PO ONE (06:24)
[2019-01-21 07:18] LABS: Absolute Lymphocytes (CBC) 0.2 K/uL (0.7-4.9); Basophils % 0.2 % (0-1.3); Hematocrit 33.9 % (39.6-49.0); Lymphocytes % 0.8 % (15.3-44.8); MPV 9.5 fL (7.6-11.3)
[2019-01-21] MEDS: ARFORMOTEROL TARTRATE 15 MCG/2 ML VIAL.NEB NEB SCH ×2 (08:35→19:40)
[2019-01-21 09:32] LABS: Platelet Estimate DECR; Platelets, Giant FEW; Urine White Blood Cell Casts OK
[2019-01-21 09:33] LABS: Anisocytosis 1+; Blood Morphology Comment NOTED (NOT SEEN); Toxic Granulation 1+
[2019-01-21] MEDS: HEPARIN 5000 UNIT/ML 1 ML VIAL SQ SCH ×2 (09:40→20:40)
[2019-01-21] MEDS: THIAMINE 200 MG/2 ML INJ IVP SCH (09:40)
[2019-01-21] MEDS: ASCORBIC ACID 500 MG TABLET PO SCH ×2 (09:40→20:39)
[2019-01-21] MEDS: Levofloxacin500mg IV 500 MG/100 ML BAG IV SCH (09:40)
[2019-01-21] MEDS: FAMOTIDINE 20 MG/2 ML VIAL IV SCH ×2 (09:40→20:39)
[2019-01-21] MEDS ORDERED: Meropenem 1000 MG/VIAL IV SCH (10:00)
[2019-01-21 10:02] LABS: Arterial Blood Carboxyhemoglob 1.3 % (0-1.5); Blood Gas Oxyhemoglobin 91.3 % (94-97); Blood O2 Saturation 93.3 % (92-98.5)
[2019-01-21] MEDS: LORazepam 2 MG/ML VIAL IV PRN ×2 (10:12→19:45)
[2019-01-21] MEDS: Meropenem 1,000 MG in NA CHLORIDE 0.9% 100 ML IV SCH ×2 (10:53→20:39)
[2019-01-21] MEDS ORDERED: MAGNESIUM HYDROXIDE 8% 30 ML PO ONE (11:08)
[2019-01-21] MEDS: HALOPERIDOL LACT 5 MG/ML INJ IV PRN (11:43)
[2019-01-21] MEDS ORDERED: VITAL AF 1,000 ML BOT RTH SCH (12:00)
--- NOTE | 2019-01-21 19:04 | PN ---
Date of Progress Note: 01/20/2019 Subjective: Patient was seen this morning for followup. No new complaints or problems reported by [facility] staff. He was on ventilator. Remains on propofol. was at bedside when I saw him. Inta ke and output records reviewed. He is tolerating tube feeding very well. Objective: Vital Signs: Reviewed. HEENT: Unremarkable. Lungs: Clear to auscultation. No rhonchi. No rales. Heart: Sounds normal. Abdomen: Soft. Bowel sounds normal. No guarding, rigidity, tenderness, distention. Extremities: No leg edema. Laboratory Data: White count 25.6, hemoglobin 12.8, platelets 130. Sodium 143, potassium 3.6, chlor isaak 114, bicarb 20, BUN 39, creatinine 1.26, glucose 170. Procalcitonin 25.27 today, yesterday it wa s 42.16. Sputum culture came back growing pseudomonas and it is sensitive to Levaquin that the patie nt is currently on. Impression: 1.Pneumonia, organism pseudomonas. 2.Acute respiratory failure with hypoxia. 3.Acute exacerbation of chronic obstructive pulmonary disease. 4.Thrombocytopenia. 5.Acute renal failure, improved. Plan: We will go ahead and reduce IV fluid rate to 30 mL/hour considering improvement in patient's r enal failure and volume depletion problem has improved. Continue current tube feeding. Continue to follow up with Dr. Rai. Patient continues to require ventilator support and Dr. Rai has re commended long-term acute care facility care and I will communicate with patient's tomorrow rega rding this. PICC line was requested. I will see him tomorrow for followup and we will continue current antibiotics. Elevated white count is likely due to steroid use . TEJA/MODL Voice ID: [id number] Report ID: [id number]
--- NOTE | 2019-01-21 21:59 | PN ---
Date of Progress Note: 01/21/2019 Subjective: Patient was seen this morning for followup. He was lying in bed, on ventilator, on prop ofol drip. and multiple other family members at bedside. Intake and output records reviewed. He is tolerating tube feeding very well. Objective: Vital Signs: Reviewed. HEENT: Unremarkable. LUNGS: Clear to auscultation on the right side and left side. Minimum rales noted in lower lung fie lds. Heart: Sounds normal. Abdomen: Soft. Bowel sounds normal. No guarding, rigidity, tenderness, or distention. Extremities: No leg edema. Laboratory Data: White count 28.3, hemoglobin 11.6 platelets 119. Yesterday, white count was 25.6, and patient was on IV steroid yesterday, which was discontinued yesterday morning. Sodium 143, potas sium 3.4, chloride 115, bicarb 21, BUN 37, creatinine 1.25, glucose 295, magnesium 3.7. Procalcitoni n 17.48; yesterday, it was 25.27; day before yesterday, it was 42.16. Impression: 1.Pneumonia. 2.Acute respiratory failure. 3.Acute exacerbation of chronic obstructive pulmonary disease. 4.Acute renal failure, improving. 5.Thrombocytopenia. 6.Hypokalemia. Plan: Patient continues to require sedation with propofol drip and we did try to cut back on it toda y. He did not tolerate that at all, and this is what happens every time we either cut back on it or stop it. He gets into significant distress, becomes tachypneic, tachycardic, hypoxic, and same thing happened today when we tried to take him off the propofol drip, so it was placed back and we have ac hieved adequate level of sedation and his vital signs got stabilized after that. He is tolerating tu be feeding well. We will continue that. His sputum culture yesterday showed Pseudomonas; today, it also showed Haemophilus. We will continue Levaquin and in place of ceftriaxone. We will give him me ropenem as of this morning. Continue other current management. We will repeat blood work tomorrow. Chest x-ray shows pneumonia in the left lung. Dr. Rai has recommended long-term acute care fac ility placement and I agree with that. I did talk to patient's and multiple other family member s regarding this. They are agreeable with that. Social service consultation was requested to assist with this arrangements and once arrangements gets completed, we will plan to transfer him via ground ambulance. I have ordered test for heparin-induced thrombocytopenia panel to be done today. Result s may not be available for next 2 days, and the reason for this test is. patient's drop in the plate let count. We will continue to monitor platelet count on a daily basis. Depending on tomorrow's res ults, we will decide whether we continue current DVT prophylaxis with heparin or not, but at this poi nt, we will continue that. TEJA/MODL Voice ID: [id number] Report ID: [id number]
[2019-01-22] MEDS: IPRATROPIUM BROM 0.5MG/2.5ML NEB SCH ×4 (01:30→20:00)
[2019-01-22] MEDS: ALBUTEROL 2.5 MG/3 ML NEB SOL NEB SCH ×4 (01:30→20:00)
[2019-01-22] MEDS: FENTANYL CITR 100 MCG/2 ML IV PRN ×4 (02:33→19:46)
[2019-01-22] MEDS: PROPOFOL 1,000 MG/100 ML VIAL IV PRN ×4 (02:34→17:41)
[2019-01-22] MEDS: ARFORMOTEROL TARTRATE 15 MCG/2 ML VIAL.NEB NEB SCH ×2 (07:39→20:00)
[2019-01-22 08:05] LABS: Absolute Lymphocytes (CBC) 0.7 K/uL (0.7-4.9); Hematocrit 37.6 % (39.6-49.0); Lymphocytes % 2.9 % (15.3-44.8); RBC Red Blood Cell Count 3.84 M/uL (4.33-5.43)
[2019-01-22 08:28] LABS: Albumin 1.6 g/dL (3.4-5.0); Bilirubin Total 1.3 mg/dL (0.2-1.0); Magnesium 2.5 mg/dL (1.8-2.4); Potassium 4.4 mmol/L (3.5-5.1); Protein, Total 6.1 g/dL (6.4-8.2)
--- NOTE | 2019-01-22 08:38 | RAD REPORT ---
EXAM DESCRIPTION: Alyssat Single View01/22/2019 8:13 am CLINICAL HISTORY: Chest pain COMPARISON: January 21, 2019 FINDINGS: Mild improvement in the left lung consolidation and volume loss. No change in mild right lung opacities Endotracheal tube has its tip 7.5 centimeters above the bravo. Nasogastric and PICC line remain in place The heart is normal size
[2019-01-22] MEDS: FAMOTIDINE 20 MG/2 ML VIAL IV SCH ×2 (08:50→20:20)
[2019-01-22] MEDS: THIAMINE 200 MG/2 ML INJ IVP SCH (08:50)
[2019-01-22] MEDS: Levofloxacin500mg IV 500 MG/100 ML BAG IV SCH (08:50)
[2019-01-22] MEDS: ASCORBIC ACID 500 MG TABLET PO SCH ×2 (08:51→20:20)
[2019-01-22] MEDS: HEPARIN 5000 UNIT/ML 1 ML VIAL SQ SCH (08:51)
[2019-01-22] MEDS: Meropenem 1,000 MG in NA CHLORIDE 0.9% 100 ML IV SCH ×2 (08:52→20:20)
[2019-01-22] MEDS: ENOXAPARIN 30 MG/0.3 ML SQ SCH ×2 (09:00→20:20)
[2019-01-22] MEDS ORDERED: BISACODYL 10 MG RECTAL SUPP PR ONE (09:48)
[2019-01-22] MEDS ORDERED: MAGNESIUM HYDROXIDE 8% 30 ML FT ONE (09:48)
--- NOTE | 2019-01-22 11:13 | RAD REPORT ---
EXAM DESCRIPTION: RAD - Chest Single View - 01/21/2019 7:05 pm CLINICAL HISTORY: Device placement PICC line placement . IMPRESSION: PICC line with its tip in the mid superior vena cava
[2019-01-22] MEDS: LORazepam 2 MG/ML VIAL IV PRN ×3 (11:40→21:55)
[2019-01-22] MEDS: NYSTATIN 100MU/GM CREAM 15GM TOP SCH ×2 (11:58→20:21)
--- NOTE | 2019-01-22 14:51 | RAD REPORT ---
EXAM DESCRIPTION: Alyssat Single View01/21/2019 7:07 pm CLINICAL HISTORY: Chest pain COMPARISON: January 20 FINDINGS: Due to technical issues at the hospital the exam could not be dictated after completion. It is now available for dictation Mild improvement in the extensive left lung opacities. No significant change in mild right lung opacities Endotracheal tube in good position PICC line in place. Nasogastric tube within the stomach
[2019-01-22] MEDS: HALOPERIDOL LACT 5 MG/ML INJ IV PRN (15:07)
--- NOTE | 2019-01-22 16:46 | PN ---
Date of Progress Note: 01/22/2019 Subjective: Patient was seen this morning for followup. Patient's was at bedside. He remained stable overnight. No new complaints or problems reported by ICU nursing staff. Intake and output r ecords reviewed. He is tolerating his feeding very well through the oral gastric tube. He has not h ad a bowel movement so far. Yesterday, 1 dose of milk of magnesia was given. He is passing gas. Prieto s good bowel sounds, but no bowel movement so far. He continues to require to be sedated with propof ol. He was on 60% FiO2 on ventilator, but during the time of suctioning as he does require suctionin g from time to time because of a significant amount of thick secretion during that time or earlier th is morning at the time of doing chest x-ray when he requires to be positioned in the bed. During suc h time he gets really agitated, ends up having tachycardia, tachypnea with some hypoxia. It takes hi m 30 minutes to 45 minutes to settle down, but otherwise rest of the time he remains very stable with well-controlled heart rate, respiratory rate, oxygenation, etc. Objective: HEENT: Unremarkable. Lungs: Bilateral good equal air entry. Presence of minimum rhonchi in left lung field. No crackles . No wheezing. Heart: Sounds normal. Abdomen: Soft. Bowel sounds normal. No guarding, rigidity, tenderness, or distention. Extremities: Some edema of arms noted. Laboratory Data: Sodium 147, potassium 4.4, chloride 116, bicarb 25, BUN 39, creatinine 0.96, glucos e 135, calcium 8, magnesium 2, total bilirubin 1.3. SGOT 52, SGPT 64, albumin 1.6. Procalcitonin 8. 09. Hemoglobin 13.1, platelets 127. Chest x-ray has started to show some improvement in left lung i nfiltrate. Impression: 1.Pneumonia. 2.Acute respiratory failure with hypoxia. 3.Acute exacerbation of chronic obstructive pulmonary disease. 4.Anemia, unspecified. Plan: We will go ahead and discontinue heparin that he was getting so far for DVT prophylaxis, consi dering his renal function has normalized. We will now start using Lovenox 30 mg subcutaneous injecti on every 12 hours per orders this morning for DVT prophylaxis. Current antibiotic, which is Levaquin and meropenem. Sputum culture has grown pseudomonas and haemophilus. We will continue current tube feeding and he also gets water flushes through the tube. We will continue those. Monitor blood wor k tomorrow and chest x-ray. Patient's pneumonia has started to show improvement on chest x-ray. Pro calcitonin is showing improvement for last 2 to 3 days. So, we will continue current antibiotic and we hope to seek day-to-day improvement with pneumonia and his overall respiratory status. Patient prieto s not had a bowel movement, so we will go ahead and give another dose of milk of magnesia and 1 dose of rectal suppository of Dulcolax. He has some redness of the skin in the scrotal area. There is no skin breakdown anywhere as reported by nursing staff for his redness in the scrotal area, likely to be due to some yeast infection. We will use nystatin cream. Details were discussed with the patient 's . We are waiting for arrangements to be completed for patient to go to long-term acute care [facility]. Once arrangements gets completed, we will transfer him via ground ambulance. TEJA/MODL Voice ID: [id number] Report ID: [id number]
[2019-01-22] MEDS: MIDAZOLAM HCL 2 MG/2 ML INJ IV PRN ×2 (22:14→23:56)
[2019-01-23] MEDS: PROPOFOL 1,000 MG/100 ML VIAL IV PRN ×3 (00:11→10:58)
[2019-01-23] MEDS: LORazepam 2 MG/ML VIAL IV PRN ×4 (00:11→18:14)
[2019-01-23] MEDS: FENTANYL CITR 100 MCG/2 ML IV PRN ×4 (00:22→18:15)
[2019-01-23] MEDS: ALBUTEROL 2.5 MG/3 ML NEB SOL NEB SCH ×3 (02:00→14:00)
[2019-01-23] MEDS: HALOPERIDOL LACT 5 MG/ML INJ IV PRN ×2 (02:21→18:15)
[2019-01-23] MEDS: MIDAZOLAM HCL 2 MG/2 ML INJ IV PRN ×2 (02:56→14:53)
[2019-01-23 04:00] VITALS: O2SAT 93
[2019-01-23 06:39] LABS: Absolute Lymphocytes (CBC) 0.9 K/uL (0.7-4.9); Basophils % 0.2 % (0-1.3); Hematocrit 35.5 % (39.6-49.0); Lymphocytes % 5.4 % (15.3-44.8); RBC Red Blood Cell Count 3.59 M/uL (4.33-5.43)
[2019-01-23 06:47] LABS: Magnesium 2.7 mg/dL (1.8-2.4); Potassium 4.6 mmol/L (3.5-5.1)
[2019-01-23 06:51] LABS: Arterial Blood Carboxyhemoglob 1.4 % (0-1.5); Blood Gas Oxyhemoglobin 91.1 % (94-97); Blood O2 Saturation 93.1 % (92-98.5)
[2019-01-23] MEDS: ARFORMOTEROL TARTRATE 15 MCG/2 ML VIAL.NEB NEB SCH (07:50)
[2019-01-23] MEDS: IPRATROPIUM BROM 0.5MG/2.5ML NEB SCH ×2 (07:50→13:45)
[2019-01-23] MEDS: Levofloxacin500mg IV 500 MG/100 ML BAG IV SCH (07:56)
[2019-01-23] MEDS: ASCORBIC ACID 500 MG TABLET PO SCH (07:57)
[2019-01-23] MEDS: FAMOTIDINE 20 MG/2 ML VIAL IV SCH (07:57)
[2019-01-23] MEDS: ENOXAPARIN 30 MG/0.3 ML SQ SCH (07:57)
[2019-01-23] MEDS: THIAMINE 200 MG/2 ML INJ IVP SCH (07:57)
[2019-01-23] MEDS: Meropenem 1,000 MG in NA CHLORIDE 0.9% 100 ML IV SCH (07:58)
[2019-01-23] MEDS: NYSTATIN 100MU/GM CREAM 15GM TOP SCH (07:58)
[2019-01-23] MEDS ORDERED: D5W 1,000 ML IV SCH (08:00)
--- NOTE | 2019-01-23 08:51 | RAD REPORT ---
EXAM DESCRIPTION: RAD - Chest Single View - 01/23/2019 7:25 am CLINICAL HISTORY: Pneumonia, intubation COMPARISON: January 22 TECHNIQUE: AP portable chest image was obtained [id number] hours . FINDINGS: Endotracheal [address], unchanged in position. NG tube extends below the diaphrag m, off the field of view. Right lung base opacification has not changed. Fibrotic type stranding in t he upper right lung field also stable. Dense opacification in the mid and lower left lung field continues to improve. There is significant i nfiltrate remaining. Right-side PICC line remains in place. Heart size is normal. No pneumothorax or enlarging pleural effusion. IMPRESSION: Continued clearing of middle lower left lung field pneumonia. Significant infiltrate rem ains. Right lung field opacification has not changed.
[2019-01-23 18:31] VITALS: BP 135/50; TEMP 98.3
--- NOTE | 2019-01-23 21:14 | DS ---
Date of Discharge: 01/23/2019 Disposition: Discharged to go to [facility]. Physical Examination: HEENT: Unremarkable. Lungs: Bilateral good equal air entry. Presence of some rales noted in both lower lung oh. Heart: Heart sounds normal. Abdomen: Soft, bowel sounds normal. No guarding, rigidity, tenderness, or distention. Extremities: No leg edema. Laboratory Data: Upon admission white count 19.9, hemoglobin 16, platelets 182, 28% bands, highest w allison count was on January 21, 2019, which was 28.3, hemoglobin 11.6, platelets 119. Last white count today 16, hemoglobin 12.1, platelets 106. HIT profile came back negative. Last chemistry today sodi um 150, potassium 4.6, chloride 116, bicarb 29, BUN 48, creatinine 0.88, glucose 116. Initial chemis try sodium 137, potassium 3.7, chloride 102, bicarb 24, BUN 42, creatinine 2.99, glucose 108. His pr ocalcitonin level when he came in was 22.33 and highest level was on 01/19/2019, it was 42.16, then i t started coming down on a daily basis, last procalcitonin level today 5.54. Echocardiogram shows no rmal ejection fraction. Serial chest x-ray done during this hospitalization showing right lower lobe and left middle and lowe r lobe pneumonia. Sputum culture growing pseudomonas and Haemophilus. Final Diagnoses: 1.Acute respiratory failure with hypoxia. 2.Acute exacerbation of chronic obstructive pulmonary disease. 3.Acute renal failure. 4.Volume depletion. 5.Encephalopathy, toxic and metabolic. 6.Pneumonia, organism pseudomonas and Haemophilus. 7.Thrombocytopenia. 8.Anemia. 9.Hypertension. 10.Hyperlipidemia. Hospital Course: This is a 68-year-old very pleasant male patient, came into office with 2 days hist ory of not feeling good, having some pain on the left side of the chest in the left parasternal regio n and left main chest. Pain was pleuritic in nature. After I evaluated the patient, decision was ma godwin to admit him to the hospital. Patient's blood pressure upon admission was 80/46. Chest x-ray showed left middle and lower lobe pneumonia. White count was elevated. He was started o n IV ceftriaxone and IV Zithromax, IV fluid was given to him. Blood cultures done which were negativ e. Night of admission, patient had respiratory distress. He was transferred to ICU and subsequently was intubated because of acute respiratory failure and patient has remained on ventilator since that time. Dr. Rai from Pulmonary was consulted and audio/video technician was consulted. Patient had a shor t run of SVT and has some PVCs and PACs from time to time. Echocardiogram had shown normal ejection fraction. With IV fluid hydration, his renal failure problem has improved and resolved. He came in with normal platelet count and platelet count did drop down on Thursday, so about 2 days ago we did ord er a test to rule out heparin-induced thrombocytopenia and the test came back negative. Patient has received heparin 5000 units subcutaneous injection every 12 hours from the time of admission for DVT prophylaxis and as of yesterday I changed it to Lovenox 30 mg subcu every 12 hours for DVT prophylaxi s as his renal function came down to normal. Initially, he was started on ceftriaxone and Zithromax and the night of admission when he was going into respiratory distress and when we moved him to ICU, at that time we discontinued Zithromax and started him on Levaquin. Dr. Rai added vancomycin wh ich subsequently was discontinued once we got the sputum culture result back. About 3-4 days ago we discontinued ceftriaxone and started him on meropenem. Levaquin was continued, initially it was 250 mg daily because of abnormal renal function, and as renal function improved, we changed the dose to 5 00 mg daily, so for the last few days he is on Levaquin 500 mg daily and meropenem 1000 mg twice a da y. His white count and procalcitonin level continues to improve on a day-to-day basis. Chest x-ray also shows improvement for last 2-3 days now on a day-to-day basis. I had a long discussion with the patient's family member including the patient's and multiple other family members 2 days ago an d I have communicated with on a day-to-day basis including today and recommended that we go ahea d and transfer him to [place] to [facility]. We do not have any manager business intelligence available as Dr. Rai will be out of town for the next 7-10 days. Transfer was requested today and I have com municated with the accepting physician and patient was accepted. Once bed is available, then we will go ahead and make arrangements for transfer and will transfer the patient via ground ambulance. Gypsy braga understands and agrees with the recommendation of transfer to [place]. Nutritional support was pro vided with help of oral gastric tube which he has tolerated well, until last night he had some rigidi ty. Patient continues to stay on ventilator for his respiratory status. He continues to require sig nificant amount of sedation and any attempts to cut down the dose causes him to go into respiratory d istress with tachypnea, tachycardia, and hypoxia. TEJA/MODL Voice ID: [id number] Report ID: [id number]
== END 2019-01-23 18:13 | disposition short-term general hospital (02) | DRG 207 ==
LOC: 4TH 15:14 → 3RD-ICU 01-18 08:46
PROVIDERS: ADMIT Internal Medicine; ATTEND Internal Medicine
PROC: 5A1955Z Respiratory Ventilation, Greater than 96 Consecutive Hours (ICD-10-PCS; principal; 2019-01-18)
PROC: 0BH17EZ Insertion of Endotracheal Airway into Trachea, Via Natural or Artificial Opening (ICD-10-PCS; 2019-01-18)
PROC: 5A09357 Assistance with Respiratory Ventilation, Less than 24 Consecutive Hours, Continuous Positive Airway Pressure (ICD-10-PCS; 2019-01-18)
PROC: 02HV33Z Insertion of Infusion Device into Superior Vena Cava, Percutaneous Approach (ICD-10-PCS; 2019-01-21)
DX: J96.21 Acute and chronic respiratory failure with hypoxia (principal); J15.1 Pneumonia due to Pseudomonas; G92 Toxic encephalopathy; N17.9 Acute kidney failure, unspecified; J44.1 Chronic obstructive pulmonary disease with (acute) exacerbation; E87.3 Alkalosis; E87.2 Acidosis; I47.1 Supraventricular tachycardia; F10.239 Alcohol dependence with withdrawal, unspecified; J96.22 Acute and chronic respiratory failure with hypercapnia; J44.9 Chronic obstructive pulmonary disease, unspecified; I10 Essential (primary) hypertension; E78.5 Hyperlipidemia, unspecified; E86.9 Volume depletion, unspecified; F17.200 Nicotine dependence, unspecified, uncomplicated; D69.6 Thrombocytopenia, unspecified; D64.9 Anemia, unspecified; Z23 Encounter for immunization
CPT/HCPCS: 36415; 71045; 80048; 80053; 80202; 81001; 82805; 82962; 83605; 83735; 84145; 84443; 85025; 87040; 87070; 87077; 87086; 87088; 87184; 87186; 87205; 87804; 90471; 93005; 93306; 94002; 94003; 94640; 94660; 94760; J0456; J0696; J1630; J1644; J1650; J2250; J2704; J2920; J3010; J3411; J7030; J7605; Q2035

== ENCOUNTER 2022-09-11 17:42 | Inpatient (IN) | payer OTHER ==
--- OUTSIDE RECORDS SUMMARY | 2022-09-11 17:47 | XMS REPORT | Continuity of Care Document ---
:1950 Author Organization [facility] t Address [address] [facility] [address] [place] [address] Care Team Providers Name Role Phone Jaswinder Do MD Primary Care Physician Thelma Escoto MA Attending Clinician Unavailable JIHAN CONRAD Attending Clinician Unavailable Jaswinder Do MD Attending Clinician RONALDO CABRALES Attending Clinician Unavailable RONALDO CABRALES Admitting Clinician Unavailable Payers Payer Name Policy Type Policy Number Effective Date Expiration Date S ource Problems Condition Condition Condition Status Onset Resolution Last Treating Co mments Source Name Details Category Date Date Treatment Clinician Date PVD PVD Disease Active Methodi (periphera (periphera 11-12 l vascular l vascular 00:00: Ho spita disease) disease) 00 l Hyperlipid Hyperlipid Disease Active M ethodi emia emia 11-12 00:00: Hospita 00 l Primary Primary Disease Active Methodi hypertensi hypertensi 11-12 on on 00:00: Hospita 00 l Pneumonia Pneumonia Disease Recurre 2018-[address] due to due to nce 0-06 [facility] Pseudomona Pseudomona 00:00: Me dical s species s species 00 Cent er Lung Lung Disease Active [facility] nod[facility] 09[facility] Pneumothor Pneumothor Disease Active [facility] ax after ax after 09-05 [facility] biopsy biopsy 00:[facility] 00 Center COPD COPD Disease Recurre [facility] exacerb[facility] exacerbati nce [facility] Allergies, Adverse Reactions, Alerts Allergy Allergy Status Severity Reaction(s) Onset Inactive Treating Comm ents Source Name Type Date Date Clinician Hydrocod Drug Active Other (See Gets very [facility] one-Acet Intolera Comments) 5-18 anxious Jovanna kes aminophe nce 00:00: Medical n 00 Center HYDROCOD Allergy Active Low Other [facility] ONE-ACET 5-18 [facility] AMINOPHE 00:00: Medical N 00 Center Family History Family Member Diagnosis Comments Start Date Stop Date Source Natural father Lung cancer [facility] Natural mother Stroke [facility] Maternal grandfather Heart disease [facility] Maternal grandmother Heart disease [facility] Social History Social Habit Start Date Stop Date Quantity Comments Source History of tobacco Current smoker [facility] Gender identity [facility] Alcohol intake 2021-11-12 2021-11-12 Ex-drinker [facility] 00:[facility]00 00:00:00 (finding) Hospital History of Social 2021-11-12 2021-11-[address] function 00:00:00 00:00:00 Hospital Cigarettes smoked 2015-09-06 2015-09-[address] [facility] current (pack per 00:00:00 00:00:00 Medical Center day) - Reported Cigarette 2015-09-06 2015-09-[address] [facility] pack-years 00:00:00 00:00:[address] [facility] Alcohol Comment 2015-09-05 2015-09-05 3 drinks per [facility] 00:00:00 00:00:00 [facility] Center Sex Assigned At [birth year] [facility] 00:00:00 00:00:00 Hospital Smoking Status Start Date Stop Date Source Ex-smoker 2021-11-12 00:00:00 2021-11-12 00:00:[address] [facility] Smokes tobacco daily 2015-09-06 00:00:00 [facility] Medications Ordered Filled Start Stop Current Ordering Indication Dosage Frequency Signature Comments Components Source Medication Medication Date Date Medication? Clinician (SIG) Name Name tiotropium Yes 18ug Place 18 Met hodi (SPIRIVA) 7-[address] 18 mcg per 08:48: inhaler Hosp terri inhalation 04 and l capsule inhale. metoprolol Yes 25mg Take 25 mg M ethodi tartrate 11-[address] (LOPRESSOR) 08:48: Hospit a 25 mg 04 l tablet fluticasone Yes 1{puff} Inhale 1 Methodi propion-yolanda 11-[address] meteroL 08:48: Hospita (ADVAIR/ 04 l WIXELA INHUB) 250-50 mcg/dose DISKUS aspirin Yes 81mg QD Take 81 mg Meth beth (ECOTRIN) 11-[address] 81 MG 08:48: daily. Hospita enteric 04 l coated tablet amLODIPine Yes 10mg QD Take 10 mg M ethodi (NORVASC) 11-[address] 10 mg 08:48: daily. Hospita tablet 04 l atorvastati Yes 20mg QD Take 20 mg Methodi n (LIPITOR) 11-[address] 20 mg 08:48: daily. Hospita tablet 04 Default OP l ins Wixela Yes Methodi Inhub -06 st 250-50 00:00: Hospita mcg/dose 00 l DISKUS WesTab Max Yes 1{tbl} QD Take 1 Met hodi 2.5-25-2 mg 4-[address] tablet 00:00: mouth Hospita 00 daily. l predniSONE 2018-04 Yes COPD Take 4 [facility] t (DELTASONE) 0-17 exacerbatio tablets [facility] 5 MG tablet 00:00: n (HCC) (20 mg) by [facility] 00 mouth Center daily for 1 day, then 2 tablets (10 mg) daily for 3 days, then 1 tablet daily for 3 days.. folic acid 2018-04 Yes Alcohol 1mg QD Take [address] (FOLVITE) 1 0-17 abuse tablet (1 Jovnana kes MG tablet 00:00: mg total) Med ical 00 by mouth Center daily. predniSONE 2018-04 No Take 4 Meth beth (DELTASONE) 0-17 07-[address] 5 mg tablet 00:00: 00:00 (20 mg) by Hospita 00 :00 mouth l daily for 1 day, then 2 tablets (10 mg) daily for 3 days, then 1 tablet daily for 3 days.. folic acid 2018-04- No 1mg QD Take 1 mg M ethodi (FOLVITE) 1 0-17 07-[address] MG tablet 00:00: 00:00 daily. Hospi ta 00 :00 l metoprolol 2018-04 Yes 25mg Q.5D Take [address] (LOPRESSOR) 0-16 by mouth 2 Jovanna kes 25 MG 18:43: (two) Medical tablet 36 times Center daily. fluticasone 2018-04 Yes 1{puff} Inhale [address] -salmeterol 0-16 puff by [facility] (ADVAIR) 18:43: mouth via Medi chase 250-50 36 inhaler Center mcg/dose every 12 diskus (twelve) inhaler hours. tiotropium 2018-04 Yes 18ug QD Inhale [address] (SPIRIVA) 0-16 mcg by [facility] 18 mcg 18:43: mouth via Medica l inhalation 36 inhaler Center capsule daily. albuterol 2018-04 Yes COPD 1{puff} Inhale [address] HFA 0-16 exacerbatio puff by [facility] (VENTOLIN 00:00: n (HCC) mouth via Medical HFA) 90 00 inhaler Center mcg/actuati every 4 on inhaler (four) hours as needed for Wheezing or Shortness of Breath. albuterol 2018-04- No 1{puff} Inhale 1 Methodi (PROAIR 0-16 07-[address] HFA) 90 00:00: 00:00 Hospita mcg/actuati 00 :00 l on inhaler Vital Signs Vital Name Observation Time Observation Value Comments Source Systolic blood 2021-11-27 13:39:00 128 mm[Hg] [facility] pressure Diastolic blood 2021-11-27 13:39:00 66 mm[Hg] Meth[facility] dist Hospital pressure Heart rate 2021-11-27 13:39:00 65 [facility] height 2021-11-27 13:39:[address] [facility] Body weight 2021-11-27 13:39:[address] [facility] BMI 2021-11-27 13:39:00 22.18 kg/m2 [facility] Oxygen saturation in 2021-11-27 13:39:00 98 /min [facility] Arterial blood by Pulse oximetry Procedures Procedure Date / Time Performed Performing Clinician Sourc e CV TREADMILL STRESS 2021-11-27 [facility] US DUPLEX ARTERIAL 2021-11-26 16:53:00 [facility] LOWER EXTREMITY BILATERAL US CAROTID DUPLEX 2021-11-26 16:50:00 [facility] BILATERAL ECG 12-LEAD 2021-11-12 13:54:07 [facility] spital Plan of Care Planned Activity Planned Date Details Comments Source Future Scheduled 2022-07-25 COVID-19 VACCINE (#1) [facility] Test 19:26:44 [code = COVID-19 VACCINE (#1)] Future Scheduled 2022-07-25 Hepatitis C screening [facility] Test 19:26:44 (procedure) [code = [id number]] Future Scheduled 2022-07-25 COLONOSCOPY SCREENING [facility] Test 19:26:44 [code = COLONOSCOPY SCREENING] Future Scheduled 2022-07-25 SHINGLES VACCINES (1 Met [facility] Test 19:26:44 of 2) [code = SHINGLES VACCINES (1 of 2)] Future Scheduled 2022-07-25 65+ [facility]AL [facility] 19:26:44 VACCINE (2 - PCV) [code = 65+ PNEUMOCOCCAL VACCINE (2 - PCV)] Future Scheduled 2022-07-25 INFLUENZA VACCINE [facility] Test 19:26:44 [code = INFLUENZA VACCINE] Encounters Start End Encounter Admission Attending Care Care Encounter Source Date/Time Date/Time Type Type Clinicians Facility Department ID 2021-12-03 2021-12-03 Telephone [facility], 1.2.840.1 [id number] Methodi 00:00:00 00:00:[address] 3.430.2.7 Hospit a .3.002465 l .8 2021-11-27 2021-11-27 Outpatient [facility] [id number] [place] 00:00:00 00:00:00 JIHAN [address] 2021-11-26 2021-11-26 Travel 1.2.840.1 [id number] Methodi 00:00:00 00:00:[address] 3.430.2.7 0.2.7.3.698 Ho spita .3.787929 084.8 l .8 2021-11-26 2021-11-26 Outpatient [facility] [id number] [place] 00:00:00 00:00:00 JIHAN [address] 2021-11-26 2021-11-26 Outpatient [facility] [id number] [place] 00:00:00 00:00:00 JIHAN [address] 2021-11-12 2021-11-12 Office Jeniffer, 1.2.840.1 [id number] Methodi 08:45:00 13:33:18 Visit Jihan Mendez 66489.1.[address] 3.430.2.7 Hospit a .3.471408 l .8 2021-11-12 2021-11-12 Travel 1.2.840.1 [id number] [id number] Methodi 00:00:00 00:00:[address] 3.430.2.7 0.2.7.3.698 Ho spita .3.978368 084.8 l .8 2021-11-12 2021-11-12 Pending sale to [facility] [id number] [place] 00:00:00 00:00:00 JIHAN [address] 2021-11-01 2021-11-01 Travel 1.2.840.1 [id number] Methodi 00:00:00 00:00:[address] 3.430.2.7 0.2.7.3.698 Ho spita .3.957417 084.8 l .8 2021-10-03 2021-10-03 Transcribe Do, 1.2.840.1 [id number] Methodi 00:00:00 00:00:00 Orders Jaswinder Espino 28969.1.[address] 3.430.2.7 Hospit a .3.336067 l .8 Results Test Description Test Time Test Comments Results Result Comments Source ECG 12 lead 2021-11-13 16:48:05 Test Item Value Reference Range Interpretation Comme nts Ventricular rate (test code = 253) 55 Atrial rate (test code = 255) 55 NJ interval (test code = 266) 152 QRSD interval (test code = 260) 84 QT interval (test code = 264) 408 QTC interval (test code = 265) 390 P axis 1 (test code = 267) 74 QRS axis 1 (test code = 268) 71 T wave axis (test code = 270) 77 EKG impression (test code = 273) Sinus bradycardia-Otherwise normal ECG-No previous ECGs available- [facility]2019-10-16 06:55:00 Test Item Value Reference Range Interpretation Comments PHOSPHORUS (BEAKER) (test code = 2.5 mg/dL 2.3-4.7 604) [id number] 06:55:00 Test Item Value Reference Range Interpretation Comments MAGNESIUM (BEAKER) (test code = 1.6 mg/dL 1.6-2.6 627) COMPREHENSIVE METABOLIC [id number] 06:55:00 Test Item Value Reference Range Interpretation Comments TOTAL PROTEIN 5.4 gm/dL 6.0-8.3 L (BEAKER) (test code = 770) ALBUMIN (BEAKER) 2.7 g/dL 3.5-5.0 L (test code = 1145) ALKALINE PHOSPHATASE 118 U/L 40-150 (BEAKER) (test code = 346) BILIRUBIN TOTAL 0.5 mg/dL 0.2-1.2 (BEAKER) (test code = 377) SODIUM (BEAKER) (test 135 meq/L 136-145 L code = 381) POTASSIUM (BEAKER) 3.5 meq/L 3.5-5.1 (test code = 379) CHLORIDE (BEAKER) 102 meq/L 98-107 (test code = 382) CO2 (BEAKER) (test 27 meq/L 22-29 code = 355) BLOOD UREA NITROGEN 10 mg/dL 7-21 (BEAKER) (test code = 354) CREATININE (BEAKER) 0.65 mg/dL 0.57-1.25 (test code = 358) GLUCOSE RANDOM 77 mg/dL 70-105 (BEAKER) (test code = 652) CALCIUM (BEAKER) 8.1 mg/dL 8.4-10.2 L (test code = 697) AST (SGOT) (BEAKER) 28 U/L 5-34 (test code = 353) ALT (SGPT) (BEAKER) 77 U/L 6-55 H (test code = 347) EGFR (BEAKER) (test 123 ESTIMATE D GFR IS code = 1092) mL/min/1.73 sq NOT ACCURA TE m CREATININE CLEARANCE IN PREDICTING GLOMERULAR FILTRATION RATE . ESTIMATED GFR I S NOT APPLICABLE FOR DIALYSIS PATIEN TS. CBC W/PLT COUNT & AUTO [id number] 06:36:00 Test Item Value Reference Range Interpretation Comments WHITE BLOOD CELL COUNT (BEAKER) 11.3 K/ L 3.5-10.5 H (test code = 775) RED BLOOD CELL COUNT (BEAKER) 2.87 M/ L 4.63-6.08 L (test code = 761) HEMOGLOBIN (BEAKER) (test code = 9.5 GM/DL 13.7-17.5 L 410) HEMATOCRIT (BEAKER) (test code = 29.3 % 40.1-51.0 L 411) MEAN CORPUSCULAR VOLUME (BEAKER) 102.1 fL 79.0-92.2 H (test code = 753) MEAN CORPUSCULAR HEMOGLOBIN 33.1 pg 25.7-32.2 H (BEAKER) (test code = 751) MEAN CORPUSCULAR HEMOGLOBIN CONC 32.4 GM/DL 32.3-36.5 (BEAKER) (test code = 752) RED CELL DISTRIBUTION WIDTH 13.6 % 11.6-14.4 (BEAKER) (test code = 412) PLATELET COUNT (BEAKER) (test 358 K/CU MM 150-450 code = 756) MEAN PLATELET VOLUME (BEAKER) 10.5 fL 9.4-12.4 (test code = 754) NUCLEATED RED BLOOD CELLS 0 /100 WBC 0-0 (BEAKER) (test code = 413) NEUTROPHILS RELATIVE PERCENT 74 % (BEAKER) (test code = 429) LYMPHOCYTES RELATIVE PERCENT 17 % (BEAKER) (test code = 430) MONOCYTES RELATIVE PERCENT 7 % (BEAKER) (test code = 431) EOSINOPHILS RELATIVE PERCENT 2 % (BEAKER) (test code = 432) BASOPHILS RELATIVE PERCENT 1 % (BEAKER) (test code = 437) NEUTROPHILS ABSOLUTE COUNT 8.31 K/ L 1.78-5.38 H (BEAKER) (test code = 670) LYMPHOCYTES ABSOLUTE COUNT 1.87 K/ L 1.32-3.57 (BEAKER) (test code = 414) MONOCYTES ABSOLUTE COUNT (BEAKER) 0.76 K/ L 0.30-0.82 (test code = 415) EOSINOPHILS ABSOLUTE COUNT 0.20 K/ L 0.04-0.54 (BEAKER) (test code = 416) BASOPHILS ABSOLUTE COUNT (BEAKER) 0.07 K/ L 0.01-0.08 (test code = 417) IMMATURE GRANULOCYTES-RELATIVE 0 % 0-1 PERCENT (BEAKER) (test code = 2801) [id number] 07:01:00 Test Item Value Reference Range Interpretation Comments PHOSPHORUS (BEAKER) (test code = 2.2 mg/dL 2.3-4.7 L 604) [id number] 07:01:00 Test Item Value Reference Range Interpretation Comments MAGNESIUM (BEAKER) (test code = 1.7 mg/dL 1.6-2.6 627) COMPREHENSIVE METABOLIC [id number] 07:01:00 Test Item Value Reference Range Interpretation Comments TOTAL PROTEIN 5.4 gm/dL 6.0-8.3 L (BEAKER) (test code = 770) ALBUMIN (BEAKER) 2.7 g/dL 3.5-5.0 L (test code = 1145) ALKALINE PHOSPHATASE 125 U/L 40-150 (BEAKER) (test code = 346) BILIRUBIN TOTAL 0.5 mg/dL 0.2-1.2 (BEAKER) (test code = 377) SODIUM (BEAKER) (test 137 meq/L 136-145 code = 381) POTASSIUM (BEAKER) 3.7 meq/L 3.5-5.1 (test code = 379) CHLORIDE (BEAKER) 104 meq/L 98-107 (test code = 382) CO2 (BEAKER) (test 28 meq/L 22-29 code = 355) BLOOD UREA NITROGEN 11 mg/dL 7-21 (AKER) (test code = 354) CREATININE (BEAKER) 0.63 mg/dL 0.57-1.25 (test code = 358) GLUCOSE RANDOM 80 mg/dL 70-105 ([facility] (test code = 652) CALCIUM (BEAKER) 8.3 mg/dL 8.4-10.2 L (test code = 697) AST (SGOT) (BEAKER) 35 U/L 5-34 H (test code = 353) ALT (SGPT) (BEAKER) 75 U/L 6-55 H (test code = 347) EGFR (BEAKER) (test 127 ESTIMATE D GFR IS code = 1092) mL/min/1.73 sq NOT ACCURA TE m CREATININE CLEARANCE IN PREDICTING GLOMERULAR FILTRATION RATE . ESTIMATED GFR I S NOT APPLICABLE FOR DIALYSIS PATIEN TS. RAD, CHEST, 1 VIEW, NON [id number] 21:37:00Reason for exam:->Shortness of breathShould this be performed at the bedside?->YesFINAL REPORT RAD, CHEST, 1 VIEW, NON DEPT INDICATION: Shortness of breath COMPAR ROXI: Radiograph the chest dated 01/27/2019. FINDINGS: Portable frontal view of the chest. IMPRESSION: Support Lines: Interval extubation and removal previously seen enteric tube. Otherwise unchanged support apparatus. Lungs and pleura: Persistent small left pleural effusion and heterogeneous airspaceopacity in the left upper lung. Persistent left retrocardiac airspace opacity. No pneumothorax. Unchanged scarring/nodularity in the right upper lung.Heart and mediastinum: Stable contours. Additional findings: None. Signed: Irvin Wallaceeport Verified Date/Time: 01/31/2019 21:37:58 POCT-GLUCOSE [id number] 12:34:00 Test Item Value Reference Range Interpretation Comments POC-GLUCOSE METER 223 mg/dL 70-[address] [facility] 67[address] ([facility] (test code = [place] 1538) [id number] POCT-GLUCOSE [id number] 06:48:00 Test Item Value Reference Range Interpretation Comments POC-GLUCOSE METER 101 mg/dL 70-[address] [facility] 67[address] (BEAKER) (test code = [place] 1538) [id number] 06:10:00 Test Item Value Reference Range Interpretation Comments PHOSPHORUS (BEAKER) (test code = 2.2 mg/dL 2.3-4.7 L 604) [id number] 06:10:00 Test Item Value Reference Range Interpretation Comments MAGNESIUM (BEAKER) (test code = 1.8 mg/dL 1.6-2.6 627) COMPREHENSIVE METABOLIC [id number] 06:10:00 Test Item Value Reference Range Interpretation Comments TOTAL PROTEIN 5.2 gm/dL 6.0-8.3 L (BEAKER) (test code = 770) ALBUMIN (BEAKER) 2.6 g/dL 3.5-5.0 L (test code = 1145) ALKALINE PHOSPHATASE 118 U/L 40-150 (BEAKER) (test code = 346) BILIRUBIN TOTAL 0.5 mg/dL 0.2-1.2 (BEAKER) (test code = 377) SODIUM (BEAKER) (test 137 meq/L 136-145 code = 381) POTASSIUM (BEAKER) 3.5 meq/L 3.5-5.1 (test code = 379) CHLORIDE (BEAKER) 105 meq/L 98-107 (test code = 382) CO2 (BEAKER) (test 28 meq/L 22-29 code = 355) BLOOD UREA NITROGEN 13 mg/dL 7-21 (BEAKER) (test code = 354) CREATININE (BEAKER) 0.59 mg/dL 0.57-1.25 (test code = 358) GLUCOSE RANDOM 89 mg/dL 70-105 (BEAKER) (test code = 652) CALCIUM (BEAKER) 8.1 mg/dL 8.4-10.2 L (test code = 697) AST (SGOT) (BEAKER) 29 U/L 5-34 (test code = 353) ALT (SGPT) (BEAKER) 64 U/L 6-55 H (test code = 347) EGFR (BEAKER) (test 137 ESTIMATE D GFR IS code = 1092) mL/min/1.73 sq NOT ACCURA TE m CREATININE CLEARANCE IN PREDICTING GLOMERULAR FILTRATION RATE . ESTIMATED GFR I S NOT APPLICABLE FOR DIALYSIS PATIEN TS. POCT-GLUCOSE [id number] 00:58:00 Test Item Value Reference Range Interpretation Comments POC-GLUCOSE METER 105 mg/dL 70-[address] [facility] [address] (BEAKER) (test code = [place] [address]) [id number] POCT-GLUCOSE [id number] 17:34:00 Test Item Value Reference Range Interpretation Comments POC-GLUCOSE METER 163 mg/dL 70-110 H TESTED AT [place] [address] (BEAKER) (test code = [facility] [place] 1538) [id number] POCT-GLUCOSE [id number] 07:04:00 Test Item Value Reference Range Interpretation Comments POC-GLUCOSE METER 74 mg/dL 70-110 [facility] AT [place] [address] [facility] (test code = [facility] [id number]) [id number] 05:53:00 Test Item Value Reference Range Interpretation Comments PHOSPHORUS (BEAKER) (test code = 2.0 mg/dL 2.3-4.7 L 604) [id number] 05:53:00 Test Item Value Reference Range Interpretation Comments MAGNESIUM (BEAKER) (test code = 1.9 mg/dL 1.6-2.6 627) COMPREHENSIVE METABOLIC [id number] 05:53:00 Test Item Value Reference Range Interpretation Comments TOTAL PROTEIN 5.2 gm/dL 6.0-8.3 L (BEAKER) (test code = 770) ALBUMIN (BEAKER) 2.6 g/dL 3.5-5.0 L (test code = 1145) ALKALINE PHOSPHATASE 127 U/L 40-150 (BEAKER) (test code = 346) BILIRUBIN TOTAL 0.9 mg/dL 0.2-1.2 (BEAKER) (test code = 377) SODIUM (BEAKER) (test 135 meq/L 136-145 L code = 381) POTASSIUM (BEAKER) 3.7 meq/L 3.5-5.1 (test code = 379) CHLORIDE (BEAKER) 105 meq/L 98-107 (test code = 382) CO2 (BEAKER) (test 24 meq/L 22-29 code = 355) BLOOD UREA NITROGEN 13 mg/dL 7-21 (BEAKER) (test code = 354) CREATININE (BEAKER) 0.64 mg/dL 0.57-1.25 (test code = 358) GLUCOSE RANDOM 83 mg/dL 70-105 (BEAKER) (test code = 652) CALCIUM (BEAKER) 8.0 mg/dL 8.4-10.2 L (test code = 697) AST (SGOT) (BEAKER) 24 U/L 5-34 (test code = 353) ALT (SGPT) (BEAKER) 61 U/L 6-55 H (test code = 347) EGFR (BEAKER) (test 125 ESTIMATE D GFR IS code = 1092) mL/min/1.73 sq NOT ACCURA TE m CREATININE CLEARANCE IN PREDICTING GLOMERULAR FILTRATION RATE . ESTIMATED GFR I S NOT APPLICABLE FOR DIALYSIS PATIEN TS. CBC W/PLT COUNT & AUTO [id number] 05:40:00 Test Item Value Reference Range Interpretation Comments WHITE BLOOD CELL COUNT (BEAKER) 11.0 K/ L 3.5-10.5 H (test code = 775) RED BLOOD CELL COUNT (BEAKER) 3.07 M/ L 4.63-6.08 L (test code = 761) HEMOGLOBIN (BEAKER) (test code = 10.3 GM/DL 13.7-17.5 L 410) HEMATOCRIT (BEAKER) (test code = 30.6 % 40.1-51.0 L 411) MEAN CORPUSCULAR VOLUME (BEAKER) 99.7 fL 79.0-92.2 H (test code = 753) MEAN CORPUSCULAR HEMOGLOBIN 33.6 pg 25.7-32.2 H (BEAKER) (test code = 751) MEAN CORPUSCULAR HEMOGLOBIN CONC 33.7 GM/DL 32.3-36.5 (BEAKER) (test code = 752) RED CELL DISTRIBUTION WIDTH 13.3 % 11.6-14.4 (BEAKER) (test code = 412) PLATELET COUNT (BEAKER) (test 326 K/CU MM 150-450 code = 756) MEAN PLATELET VOLUME (BEAKER) 11.0 fL 9.4-12.4 (test code = 754) NUCLEATED RED BLOOD CELLS 0 /100 WBC 0-0 (BEAKER) (test code = 413) NEUTROPHILS RELATIVE PERCENT 83 % (BEAKER) (test code = 429) LYMPHOCYTES RELATIVE PERCENT 11 % (BEAKER) (test code = 430) MONOCYTES RELATIVE PERCENT 5 % (BEAKER) (test code = 431) EOSINOPHILS RELATIVE PERCENT 1 % (BEAKER) (test code = 432) BASOPHILS RELATIVE PERCENT 0 % (BEAKER) (test code = 437) NEUTROPHILS ABSOLUTE COUNT 9.08 K/ L 1.78-5.38 H (BEAKER) (test code = 670) LYMPHOCYTES ABSOLUTE COUNT 1.18 K/ L 1.32-3.57 L (BEAKER) (test code = 414) MONOCYTES ABSOLUTE COUNT (BEAKER) 0.53 K/ L 0.30-0.82 (test code = 415) EOSINOPHILS ABSOLUTE COUNT 0.12 K/ L 0.04-0.54 (BEAKER) (test code = 416) BASOPHILS ABSOLUTE COUNT (BEAKER) 0.03 K/ L 0.01-0.08 (test code = 417) IMMATURE GRANULOCYTES-RELATIVE 1 % 0-1 PERCENT (BEAKER) (test code = 2801) POCT-GLUCOSE [id number] 00:22:00 Test Item Value Reference Range Interpretation Comments POC-GLUCOSE METER 76 mg/dL 70-110 TESTED AT [place] [address] [facility] (test code = [facility] [address]38) POCT-GLUCOSE [id number] 18:34:00 Test Item Value Reference Range Interpretation Comments POC-GLUCOSE METER 155 mg/dL 70-110 H TESTED AT [place] [address] ([facility] (test code = [facility] 1538) [id number] POCT-GLUCOSE [id number] 11:37:00 Test Item Value Reference Range Interpretation Comments POC-GLUCOSE METER 162 mg/dL 70-110 H TESTED AT [place] [address] ([facility] (test code = [facility] 1538) [id number] BASIC METABOLIC [id number] 10:36:00 Test Item Value Reference Range Interpretation Comments SODIUM (BEAKER) 134 meq/L 136-145 L (test code = 381) POTASSIUM (BEAKER) 3.9 meq/L 3.5-5.1 (test code = 379) CHLORIDE (BEAKER) 103 meq/L 98-107 (test code = 382) CO2 (BEAKER) (test 24 meq/L 22-29 code = 355) BLOOD UREA NITROGEN 17 mg/dL 7-21 (BEAKER) (test code = 354) CREATININE (BEAKER) 0.61 mg/dL 0.57-1.25 (test code = 358) GLUCOSE RANDOM 81 mg/dL 70-105 (BEAKER) (test code = 652) CALCIUM (BEAKER) 8.4 mg/dL 8.4-10.2 (test code = 697) EGFR (BEAKER) (test 132 mL/min/1.73 ESTIM ATED GFR IS code = 1092) sq m NOT ACCURATE CREATININE CLEARANCE IN PREDICTING GLOMERULAR FILTRATION RATE . ESTIMATED GFR I S NOT APPLICABLE FOR DIALYSIS PATIEN TS. POCT-GLUCOSE [id number] 06:58:00 Test Item Value Reference Range Interpretation Comments POC-GLUCOSE METER 110 mg/dL 70-[address] [facility] 6720 (BEAKER) (test code = [place] 1538) [id number] 05:04:00 Test Item Value Reference Range Interpretation Comments PHOSPHORUS (BEAKER) (test code = 2.2 mg/dL 2.3-4.7 L 604) [id number] 05:04:00 Test Item Value Reference Range Interpretation Comments MAGNESIUM (BEAKER) (test code = 1.7 mg/dL 1.6-2.6 627) COMPREHENSIVE METABOLIC [id number] 05:04:00 Test Item Value Reference Range Interpretation Comments TOTAL PROTEIN 5.1 gm/dL 6.0-8.3 L (BEAKER) (test code = 770) ALBUMIN (BEAKER) 2.5 g/dL 3.5-5.0 L (test code = 1145) ALKALINE PHOSPHATASE 149 U/L 40-150 (BEAKER) (test code = 346) BILIRUBIN TOTAL 0.8 mg/dL 0.2-1.2 (BEAKER) (test code = 377) SODIUM (BEAKER) (test 138 meq/L 136-145 code = 381) POTASSIUM (BEAKER) 3.4 meq/L 3.5-5.1 L (test code = 379) CHLORIDE (BEAKER) 105 meq/L 98-107 (test code = 382) CO2 (BEAKER) (test 26 meq/L 22-29 code = 355) BLOOD UREA NITROGEN 19 mg/dL 7-21 (BEAKER) (test code = 354) CREATININE (BEAKER) 0.58 mg/dL 0.57-1.25 (test code = 358) GLUCOSE RANDOM 81 mg/dL 70-105 (BEAKER) (test code = 652) CALCIUM (BEAKER) 8.0 mg/dL 8.4-10.2 L (test code = 697) AST (SGOT) (BEAKER) 36 U/L 5-34 H (test code = 353) ALT (SGPT) (BEAKER) 71 U/L 6-55 H (test code = 347) EGFR (BEAKER) (test 140 ESTIMATE D GFR IS code = 1092) mL/min/1.73 sq NOT ACCURA TE m CREATININE CLEARANCE IN PREDICTING GLOMERULAR FILTRATION RATE . ESTIMATED GFR I S NOT APPLICABLE FOR DIALYSIS PATIEN TS. CBC W/PLT COUNT & AUTO [id number] 04:47:00 Test Item Value Reference Range Interpretation Comments WHITE BLOOD CELL COUNT (BEAKER) 9.8 K/ L 3.5-10.5 (test code = 775) RED BLOOD CELL COUNT (BEAKER) 3.34 M/ L 4.63-6.08 L (test code = 761) HEMOGLOBIN (BEAKER) (test code = 11.0 GM/DL 13.7-17.5 L 410) HEMATOCRIT (BEAKER) (test code = 33.8 % 40.1-51.0 L 411) MEAN CORPUSCULAR VOLUME (BEAKER) 101.2 fL 79.0-92.2 H (test code = 753) MEAN CORPUSCULAR HEMOGLOBIN 32.9 pg 25.7-32.2 H (BEAKER) (test code = 751) MEAN CORPUSCULAR HEMOGLOBIN CONC 32.5 GM/DL 32.3-36.5 (BEAKER) (test code = 752) RED CELL DISTRIBUTION WIDTH 13.5 % 11.6-14.4 (BEAKER) (test code = 412) PLATELET COUNT (BEAKER) (test 283 K/CU MM 150-450 code = 756) MEAN PLATELET VOLUME (BEAKER) 11.1 fL 9.4-12.4 (test code = 754) NUCLEATED RED BLOOD CELLS 0 /100 WBC 0-0 (BEAKER) (test code = 413) NEUTROPHILS RELATIVE PERCENT 81 % (BEAKER) (test code = 429) LYMPHOCYTES RELATIVE PERCENT 11 % (BEAKER) (test code = 430) MONOCYTES RELATIVE PERCENT 6 % (BEAKER) (test code = 431) EOSINOPHILS RELATIVE PERCENT 1 % (BEAKER) (test code = 432) BASOPHILS RELATIVE PERCENT 0 % (BEAKER) (test code = 437) NEUTROPHILS ABSOLUTE COUNT 7.96 K/ L 1.78-5.38 H (BEAKER) (test code = 670) LYMPHOCYTES ABSOLUTE COUNT 1.11 K/ L 1.32-3.57 L (BEAKER) (test code = 414) MONOCYTES ABSOLUTE COUNT (BEAKER) 0.54 K/ L 0.30-0.82 (test code = 415) EOSINOPHILS ABSOLUTE COUNT 0.13 K/ L 0.04-0.54 (BEAKER) (test code = 416) BASOPHILS ABSOLUTE COUNT (BEAKER) 0.03 K/ L 0.01-0.08 (test code = 417) IMMATURE GRANULOCYTES-RELATIVE 1 % 0-1 PERCENT (BEAKER) (test code = 2801) BLOOD [id number] 02:01:00 Test Item Value Reference Range Interpretation Comments CULTURE (BEAKER) (test No growth in 5 days code = 1095) BLOOD [id number] 02:01:00 Test Item Value Reference Range Interpretation Comments CULTURE (BEAKER) (test No growth in 5 days code = 1095) POCT-GLUCOSE [id number] 23:30:00 Test Item Value Reference Range Interpretation Comments POC-GLUCOSE METER 96 mg/dL 70-110 TESTED AT [place] [address] (BEAKER) (test code = [facility] [address] 1538) POCT-GLUCOSE [id number] 18:18:00 Test Item Value Reference Range Interpretation Comments POC-GLUCOSE METER 135 mg/dL 70-110 H [facility] [place] [address] [facility] (test code = [facility] 1538) [address] BLOOD GAS, [id number] 12:34:00 Test Item Value Reference Range Interpretation Comments PH VENOUS (BEAKER) (test code = 7.45 7.32-7.42 H 701) PCO2 VENOUS (BEAKER) (test code = 33 mmHg 41-51 L 755) PO2 VENOUS (BEAKER) (test code = 44 mmHg 25-40 H 702) O2 SATURATION VENOUS (BEAKER) 84.2 % 40.0-70.0 H (test code = 703) HCO3 VENOUS (BEAKER) (test code = 23 mmol/L 21-29 705) BASE EXCESS VENOUS (BEAKER) (test -1.1 mmol/L -2.0-3.0 code = 704) PATIENT TEMPERATURE (BEAKER) 36.4 C (test code = 1818) FIO2 (BEAKER) (test code = 1819) 50.0 % POCT-GLUCOSE [id number] 12:24:00 Test Item Value Reference Range Interpretation Comments POC-GLUCOSE METER 188 mg/dL 70-[address] [facility] 6720 (BEAKER) (test code = [place] 1538) [address] SPUTUM CULTURE + GRAM [id number] 09:51:00 Test Item Value Reference Range Interpretation Comments CULTURE (BEAKER) PSEUDOMONAS A <1+ Pseudom onas (test code = 1095) AERUGINOSA aeruginos a Amikacin (test code Susceptible 0-16 S = 1) , Resistant <0 or >16 Aztreonam (test Susceptible 0-8 , S code = 32) Resistant <0 or >8 Cefepime (test code Susceptible 0-8 , S = 51) Resistant <0 or >8 Ceftazidime (test Susceptible 0-8 , S code = 27) Resistant <0 or >8 Ciprofloxacin (test Susceptible 0-0.5 S code = 7) , Resistant <0 or >.5 Gentamicin (test Susceptible 0-4 , S code = 18) Resistant <0 or >4 Levofloxacin (test Susceptible 0-1 , S code = 22) Resistant <0 or >1 Meropenem (test Susceptible 0-2 , S code = 34) Resistant <0 or >2 Piperacillin (test Susceptible 0-16 S code = 24) , Resistant <0 or >16 Piperacillin + Susceptible 0-16 S Tazobactam (test , Resistant <0 or code = 29) >16 Tobramycin (test Susceptible 0-4 , S code = 25) Resistant <0 or >4 GRAM STAIN RESULT <1+ WBCs (BEAKER) (test code = 1123) GRAM STAIN RESULT 0-5 epithelial (BEAKER) (test code cells = [id number]) GRAM STAIN RESULT No organisms seen (BEAKER) (test code = 532428) 1+ yeastNo Normal respiratory axel presentBLOOD GAS, [id number] 08:01:00 Test Item Value Reference Range Interpretation Comments PH ARTERIAL (BEAKER) (test code = 7.47 7.35-7.45 H 383) PCO2 ARTERIAL (BEAKER) (test code 34 mmHg 35-45 L = 384) PO2 ARTERIAL (BEAKER) (test code = 92 mmHg 80-90 H 385) O2 SATURATION ARTERIAL (BEAKER) 98.0 % 96.0-97.0 H (test code = 386) HCO3 ARTERIAL (BEAKER) (test code 25 mmol/L 21-29 = 388) BASE EXCESS ARTERIAL (BEAKER) 0.8 mmol/L -2.0-3.0 (test code = 387) PATIENT TEMPERATURE (BEAKER) (test 34.7 C code = 1818) FIO2 (BEAKER) (test code = 1819) 45.0 % [id number] 07:12:00 Test Item Value Reference Range Interpretation Comments PHOSPHORUS (BEAKER) (test code = 3.4 mg/dL 2.3-4.7 604) [id number] 07:12:00 Test Item Value Reference Range Interpretation Comments MAGNESIUM (BEAKER) (test code = 1.9 mg/dL 1.6-2.6 627) COMPREHENSIVE METABOLIC [id number] 07:12:00 Test Item Value Reference Range Interpretation Comments TOTAL PROTEIN 5.9 gm/dL 6.0-8.3 L (BEAKER) (test code = 770) ALBUMIN (BEAKER) 2.8 g/dL 3.5-5.0 L (test code = 1145) ALKALINE PHOSPHATASE 195 U/L 40-150 H (BEAKER) (test code = 346) BILIRUBIN TOTAL 1.1 mg/dL 0.2-1.2 (BEAKER) (test code = 377) SODIUM (BEAKER) (test 136 meq/L 136-145 code = 381) POTASSIUM (BEAKER) 4.1 meq/L 3.5-5.1 (test code = 379) CHLORIDE (BEAKER) 104 meq/L 98-107 (test code = 382) CO2 (BEAKER) (test 23 meq/L 22-29 code = 355) BLOOD UREA NITROGEN 28 mg/dL 7-21 H (BEAKER) (test code = 354) CREATININE (BEAKER) 0.61 mg/dL 0.57-1.25 (test code = 358) GLUCOSE RANDOM 99 mg/dL 70-105 (BEAKER) (test code = 652) CALCIUM (BEAKER) 8.5 mg/dL 8.4-10.2 (test code = 697) AST (SGOT) (BEAKER) 25 U/L 5-34 (test code = 353) ALT (SGPT) (BEAKER) 68 U/L 6-55 H (test code = 347) EGFR ([facility] (test 132 ESTIMATE D GFR IS code = 1092) mL/min/1.73 sq NOT ACCURA TE m CREATININE CLEARANCE IN PREDICTING GLOMERULAR FILTRATION RATE . ESTIMATED GFR I S NOT APPLICABLE FOR DIALYSIS PATIEN TS. POCT-GLUCOSE [id number] 06:20:00 Test Item Value Reference Range Interpretation Comments POC-GLUCOSE METER 92 mg/dL 70-[address] [facility] 6720 ([facility] (test code = [place] [address] 1538) CBC W/PLT COUNT & AUTO [id number] 05:04:00 Test Item Value Reference Range Interpretation Comments WHITE BLOOD CELL COUNT (BEAKER) 9.7 K/ L 3.5-10.5 (test code = 775) RED BLOOD CELL COUNT (BEAKER) 3.70 M/ L 4.63-6.08 L (test code = 761) HEMOGLOBIN (BEAKER) (test code = 12.1 GM/DL 13.7-17.5 L 410) HEMATOCRIT (BEAKER) (test code = 37.3 % 40.1-51.0 L 411) MEAN CORPUSCULAR VOLUME (BEAKER) 100.8 fL 79.0-92.2 H (test code = 753) MEAN CORPUSCULAR HEMOGLOBIN 32.7 pg 25.7-32.2 H (BEAKER) (test code = 751) MEAN CORPUSCULAR HEMOGLOBIN CONC 32.4 GM/DL 32.3-36.5 (BEAKER) (test code = 752) RED CELL DISTRIBUTION WIDTH 13.9 % 11.6-14.4 (BEAKER) (test code = 412) PLATELET COUNT (BEAKER) (test 293 K/CU MM 150-450 code = 756) MEAN PLATELET VOLUME (BEAKER) 11.3 fL 9.4-12.4 (test code = 754) NUCLEATED RED BLOOD CELLS 0 /100 WBC 0-0 (BEAKER) (test code = 413) NEUTROPHILS RELATIVE PERCENT 90 % (BEAKER) (test code = 429) LYMPHOCYTES RELATIVE PERCENT 6 % (BEAKER) (test code = 430) MONOCYTES RELATIVE PERCENT 3 % (BEAKER) (test code = 431) EOSINOPHILS RELATIVE PERCENT 0 % (BEAKER) (test code = 432) BASOPHILS RELATIVE PERCENT 0 % (BEAKER) (test code = 437) NEUTROPHILS ABSOLUTE COUNT 8.72 K/ L 1.78-5.38 H (BEAKER) (test code = 670) LYMPHOCYTES ABSOLUTE COUNT 0.61 K/ L 1.32-3.57 L (BEAKER) (test code = 414) MONOCYTES ABSOLUTE COUNT (BEAKER) 0.27 K/ L 0.30-0.82 L (test code = 415) EOSINOPHILS ABSOLUTE COUNT 0.01 K/ L 0.04-0.54 L (BEAKER) (test code = 416) BASOPHILS ABSOLUTE COUNT (BEAKER) 0.01 K/ L 0.01-0.08 (test code = 417) IMMATURE GRANULOCYTES-RELATIVE 1 % 0-1 PERCENT (BEAKER) (test code = 2801) POCT-GLUCOSE [id number] 01:08:00 Test Item Value Reference Range Interpretation Comments POC-GLUCOSE METER 83 mg/dL 70-110 TESTED AT [place] [address] ([facility] (test code = [facility] [address] 1538) POCT-GLUCOSE [id number] 17:05:00 Test Item Value Reference Range Interpretation Comments POC-GLUCOSE METER 98 mg/dL 70-110 TESTED AT [place] [address] ([facility] (test code = [facility] [address] 1538) POCT-GLUCOSE [id number] 11:28:00 Test Item Value Reference Range Interpretation Comments POC-GLUCOSE METER 111 mg/dL 70-110 H TESTED AT [place] [address] ([facility] (test code = [facility] 1538) [address] RAD, CHEST, 1 VIEW, NON [id number] 10:09:00Reason for exam:->sobShould this be performed at the bedside?->YesFINAL REPORT RAD, CHEST, 1 VIEW, NON DEPT INDICATION: sob COMPARISON: January 25, 2018 FINDINGS: Portable frontal view of the chest. IMPRESSION: Support Lines: Stable. Lungs and pleura: Poorly defined airspace disease in the left upper lobe grossly stable compared to the prior examination. Scattered subsegmental atelectasis somewhat improved. Trace bilateral effusions. No pneumothorax.Heart and mediastinum: Stable contours. Additional findings: None. Signed: JR Stormy, Constantino Ramos Verified Date/Time: 01/27/2019 10:09:26 Reading Location: [facility] Radiology Reading Room POCT-GLUCOSE [id number] 06:19:00 Test Item Value Reference Range Interpretation Comments POC-GLUCOSE METER 132 mg/dL 70-[address] [facility] 6720 (BEAKER) (test code = [place] [place] 1538) [address] [id number] 03:31:00 Test Item Value Reference Range Interpretation Comments PHOSPHORUS (BEAKER) (test code = 3.1 mg/dL 2.3-4.7 604) [id number] 03:31:00 Test Item Value Reference Range Interpretation Comments MAGNESIUM (BEAKER) (test code = 1.8 mg/dL 1.6-2.6 627) COMPREHENSIVE METABOLIC [id number] 03:31:00 Test Item Value Reference Range Interpretation Comments TOTAL PROTEIN 5.3 gm/dL 6.0-8.3 L (BEAKER) (test code = 770) ALBUMIN (BEAKER) 2.5 g/dL 3.5-5.0 L (test code = 1145) ALKALINE PHOSPHATASE 205 U/L 40-150 H (BEAKER) (test code = 346) BILIRUBIN TOTAL 1.1 mg/dL 0.2-1.2 (BEAKER) (test code = 377) SODIUM (BEAKER) (test 140 meq/L 136-145 code = 381) POTASSIUM (BEAKER) 3.9 meq/L 3.5-5.1 (test code = 379) CHLORIDE (BEAKER) 109 meq/L 98-107 H (test code = 382) CO2 (BEAKER) (test 24 meq/L 22-29 code = 355) BLOOD UREA NITROGEN 35 mg/dL 7-21 H (BEAKER) (test code = 354) CREATININE (BEAKER) 0.68 mg/dL 0.57-1.25 (test code = 358) GLUCOSE RANDOM 132 mg/dL 70-105 H (BEAKER) (test code = 652) CALCIUM (BEAKER) 8.5 mg/dL 8.4-10.2 (test code = 697) AST (SGOT) (BEAKER) 47 U/L 5-34 H (test code = 353) ALT (SGPT) (BEAKER) 77 U/L 6-55 H (test code = 347) EGFR (BEAKER) (test 116 ESTIMATE D GFR IS code = 1092) mL/min/1.73 sq NOT ACCURA TE m CREATININE CLEARANCE IN PREDICTING GLOMERULAR FILTRATION RATE . ESTIMATED GFR I S NOT APPLICABLE FOR DIALYSIS PATIEN TS. CBC W/PLT COUNT & AUTO [id number] 03:01:00 Test Item Value Reference Range Interpretation Comments WHITE BLOOD CELL COUNT (BEAKER) 10.0 K/ L 3.5-10.5 (test code = 775) RED BLOOD CELL COUNT (BEAKER) 3.33 M/ L 4.63-6.08 L (test code = 761) HEMOGLOBIN (BEAKER) (test code = 11.0 GM/DL 13.7-17.5 L 410) HEMATOCRIT (BEAKER) (test code = 33.9 % 40.1-51.0 L 411) MEAN CORPUSCULAR VOLUME (BEAKER) 101.8 fL 79.0-92.2 H (test code = 753) MEAN CORPUSCULAR HEMOGLOBIN 33.0 pg 25.7-32.2 H (BEAKER) (test code = 751) MEAN CORPUSCULAR HEMOGLOBIN CONC 32.4 GM/DL 32.3-36.5 (BEAKER) (test code = 752) RED CELL DISTRIBUTION WIDTH 14.5 % 11.6-14.4 H (BEAKER) (test code = 412) PLATELET COUNT (BEAKER) (test 222 K/CU MM 150-450 code = 756) MEAN PLATELET VOLUME (BEAKER) 11.2 fL 9.4-12.4 (test code = 754) NUCLEATED RED BLOOD CELLS 0 /100 WBC 0-0 (BEAKER) (test code = 413) NEUTROPHILS RELATIVE PERCENT 84 % (BEAKER) (test code = 429) LYMPHOCYTES RELATIVE PERCENT 10 % (BEAKER) (test code = 430) MONOCYTES RELATIVE PERCENT 5 % (BEAKER) (test code = 431) EOSINOPHILS RELATIVE PERCENT 1 % (BEAKER) (test code = 432) BASOPHILS RELATIVE PERCENT 0 % (BEAKER) (test code = 437) NEUTROPHILS ABSOLUTE COUNT 8.34 K/ L 1.78-5.38 H (BEAKER) (test code = 670) LYMPHOCYTES ABSOLUTE COUNT 0.96 K/ L 1.32-3.57 L (BEAKER) (test code = 414) MONOCYTES ABSOLUTE COUNT (BEAKER) 0.50 K/ L 0.30-0.82 (test code = 415) EOSINOPHILS ABSOLUTE COUNT 0.10 K/ L 0.04-0.54 (BEAKER) (test code = 416) BASOPHILS ABSOLUTE COUNT (BEAKER) 0.01 K/ L 0.01-0.08 (test code = 417) IMMATURE GRANULOCYTES-RELATIVE 1 % 0-1 PERCENT (BEAKER) (test code = 2801) BLOOD GAS, [id number] 02:57:00 Test Item Value Reference Range Interpretation Comments PH ARTERIAL (BEAKER) (test code = 7.44 7.35-7.45 383) PCO2 ARTERIAL (BEAKER) (test code 43 mmHg 35-45 = 384) PO2 ARTERIAL (BEAKER) (test code = 42 mmHg 80-90 L 385) O2 SATURATION ARTERIAL (BEAKER) 79.8 % 96.0-97.0 L (test code = 386) HCO3 ARTERIAL (BEAKER) (test code 28 mmol/L 21-29 = 388) BASE EXCESS ARTERIAL (BEAKER) 3.5 mmol/L -2.0-3.0 H (test code = 387) PATIENT TEMPERATURE (BEAKER) (test 36.9 C code = 1818) FIO2 (BEAKER) (test code = 1819) 45.0 % POCT-GLUCOSE [id number] 00:23:00 Test Item Value Reference Range Interpretation Comments POC-GLUCOSE METER 143 mg/dL 70-[address] [facility] 6720 [facility] (test code = [facility] 1538) [address] POCT-GLUCOSE [id number] 18:34:00 Test Item Value Reference Range Interpretation Comments POC-GLUCOSE METER 131 mg/dL 70-[address] [facility] 6720 [facility] (test code = [facility] 1538) [address] POCT-GLUCOSE [id number] 17:47:00 Test Item Value Reference Range Interpretation Comments POC-GLUCOSE METER 133 mg/dL 70-[address] [facility] 6720 (BEAKER) (test code = [place] 1538) [address] CBC W/PLT COUNT & AUTO [id number] 12:52:00 Test Item Value Reference Range Interpretation Comments WHITE BLOOD CELL COUNT (BEAKER) 9.9 K/ L 3.5-10.5 (test code = 775) RED BLOOD CELL COUNT (BEAKER) 3.37 M/ L 4.63-6.08 L (test code = 761) HEMOGLOBIN (BEAKER) (test code = 11.1 GM/DL 13.7-17.5 L 410) HEMATOCRIT (BEAKER) (test code = 34.4 % 40.1-51.0 L 411) MEAN CORPUSCULAR VOLUME (BEAKER) 102.1 fL 79.0-92.2 H (test code = 753) MEAN CORPUSCULAR HEMOGLOBIN 32.9 pg 25.7-32.2 H (BEAKER) (test code = 751) MEAN CORPUSCULAR HEMOGLOBIN CONC 32.3 GM/DL 32.3-36.5 (BEAKER) (test code = 752) RED CELL DISTRIBUTION WIDTH 15.1 % 11.6-14.4 H (BEAKER) (test code = 412) PLATELET COUNT (BEAKER) (test 201 K/CU MM 150-450 code = 756) MEAN PLATELET VOLUME (BEAKER) 11.9 fL 9.4-12.4 (test code = 754) NUCLEATED RED BLOOD CELLS 0 /100 WBC 0-0 (BEAKER) (test code = 413) (MANUAL DIFFERENTIAL)[id number] 12:52:00 Test Item Value Reference Range Interpretation Comments NEUTROPHILS - REL (DIFF) (BEAKER) 89 % (test code = 1359) LYMPHOCYTES - REL (DIFF) (BEAKER) 4 % (test code = 1360) MONOCYTES - REL (DIFF) (BEAKER) 3 % (test code = 1361) EOSINOPHILS - REL (DIFF) (BEAKER) 1 % (test code = 1362) BASOPHILS - REL (DIFF) (BEAKER) 0 % (test code = 1363) MYELOCYTES-REL (DIFF) (BEAKER) 2 % 0-0 H (test code = 1594) BANDS - REL (DIFF) (BEAKER) (test 1 % 0-10 code = 1348) NEUTROPHILS - ABS (DIFF) (BEAKER) 8.81 K/ L 1.80-8.00 H (test code = 1365) LYMPHOCYTES - ABS (DIFF) (BEAKER) 0.40 K/ L 1.48-4.50 L (test code = 1366) MONOCYTES - ABS (DIFF) (BEAKER) 0.30 K/ L 0.00-1.30 (test code = 1367) EOSINOPHILS - ABS (DIFF) (BEAKER) 0.10 K/ L 0.00-0.50 (test code = 1368) BASOPHILS - ABS (DIFF) (BEAKER) 0.00 K/ L 0.00-0.20 (test code = 1369) BANDS-ABS (DIFF) (BEAKER) (test 0.1 K/ L 0.0-0.8 code = 1349) MYELOCYTES-ABS (DIFF) (BEAKER) 0.20 K/ L 0.00-0.00 H (test code = 1593) TOTAL COUNTED (BEAKER) (test code = 100 1351) BANDS + SEGMENTED NEUTROPHILS 8.91 (BEAKER) (test code = 1352) WBC MORPHOLOGY (BEAKER) (test code Normal = 487) PLT MORPHOLOGY (BEAKER) (test code Normal = 486) RBC MORPHOLOGY (BEAKER) (test code Normal = 762) POCT-GLUCOSE [id number] 11:55:00 Test Item Value Reference Range Interpretation Comments POC-GLUCOSE METER 115 mg/dL 70-[address] [facility] 6720 (BEAKER) (test code = [facility] [place] 1538) [address] BLOOD GAS, [id number] 09:28:00 Test Item Value Reference Range Interpretation Comments PH ARTERIAL (BEAKER) (test code = 7.48 7.35-7.45 H 383) PCO2 ARTERIAL (BEAKER) (test code 39 mmHg 35-45 = 384) PO2 ARTERIAL (BEAKER) (test code = 89 mmHg 80-90 385) O2 SATURATION ARTERIAL (BEAKER) 97.4 % 96.0-97.0 H (test code = 386) HCO3 ARTERIAL (BEAKER) (test code 28 mmol/L 21-29 = 388) BASE EXCESS ARTERIAL (BEAKER) 4.3 mmol/L -2.0-3.0 H (test code = 387) PATIENT TEMPERATURE (BEAKER) (test 36.5 C code = 1818) FIO2 (BEAKER) (test code = 1819) 40.0 % [id number] 05:34:00 Test Item Value Reference Range Interpretation Comments PHOSPHORUS (BEAKER) (test code = 3.4 mg/dL 2.3-4.7 604) [id number] 05:34:00 Test Item Value Reference Range Interpretation Comments MAGNESIUM (BEAKER) (test code = 2.2 mg/dL 1.6-2.6 627) COMPREHENSIVE METABOLIC [id number] 05:34:00 Test Item Value Reference Range Interpretation Comments TOTAL PROTEIN 5.5 gm/dL 6.0-8.3 L (BEAKER) (test code = 770) ALBUMIN (BEAKER) 2.6 g/dL 3.5-5.0 L (test code = 1145) ALKALINE PHOSPHATASE 200 U/L 40-150 H (BEAKER) (test code = 346) BILIRUBIN TOTAL 1.0 mg/dL 0.2-1.2 (BEAKER) (test code = 377) SODIUM (BEAKER) (test 144 meq/L 136-145 code = 381) POTASSIUM (BEAKER) 4.9 meq/L 3.5-5.1 (test code = 379) CHLORIDE (BEAKER) 110 meq/L 98-107 H (test code = 382) CO2 (BEAKER) (test 27 meq/L 22-29 code = 355) BLOOD UREA NITROGEN 39 mg/dL 7-21 H (BEAKER) (test code = 354) CREATININE (BEAKER) 0.73 mg/dL 0.57-1.25 (test code = 358) GLUCOSE RANDOM 135 mg/dL 70-105 H (BEAKER) (test code = 652) CALCIUM (BEAKER) 8.5 mg/dL 8.4-10.2 (test code = 697) AST (SGOT) (BEAKER) 18 U/L 5-34 (test code = 353) ALT (SGPT) (BEAKER) 44 U/L 6-55 (test code = 347) EGFR (BEAKER) (test 107 ESTIMATE D GFR IS code = 1092) mL/min/1.73 sq NOT ACCURA TE m CREATININE CLEARANCE IN PREDICTING GLOMERULAR FILTRATION RATE . ESTIMATED GFR I S NOT APPLICABLE FOR DIALYSIS PATIEN TS. BLOOD GAS, [id number] 05:14:00 Test Item Value Reference Range Interpretation Comments PH ARTERIAL (BEAKER) (test code = 7.43 7.35-7.45 383) PCO2 ARTERIAL (BEAKER) (test code 44 mmHg 35-45 = 384) PO2 ARTERIAL (BEAKER) (test code = 161 mmHg 80-90 H 385) O2 SATURATION ARTERIAL (BEAKER) 99.1 % 96.0-97.0 H (test code = 386) HCO3 ARTERIAL (BEAKER) (test code 29 mmol/L 21-29 = 388) BASE EXCESS ARTERIAL (BEAKER) 4.1 mmol/L -2.0-3.0 H (test code = 387) PATIENT TEMPERATURE (BEAKER) (test 37.1 C code = 1818) FIO2 (BEAKER) (test code = 1819) 60.0 % [id number] 18:10:00 Test Item Value Reference Range Interpretation Comments MAGNESIUM (BEAKER) (test code = 2.3 mg/dL 1.6-2.6 627) BASIC METABOLIC [id number] 18:10:00 Test Item Value Reference Range Interpretation Comments SODIUM (BEAKER) 143 meq/L 136-145 (test code = 381) POTASSIUM (BEAKER) 4.8 meq/L 3.5-5.1 (test code = 379) CHLORIDE (BEAKER) 111 meq/L 98-107 H (test code = 382) CO2 (BEAKER) (test 27 meq/L 22-29 code = 355) BLOOD UREA NITROGEN 42 mg/dL 7-21 H (BEAKER) (test code = 354) CREATININE (BEAKER) 0.73 mg/dL 0.57-1.25 (test code = 358) GLUCOSE RANDOM 146 mg/dL 70-105 H (BEAKER) (test code = 652) CALCIUM (BEAKER) 8.0 mg/dL 8.4-10.2 L (test code = 697) EGFR (BEAKER) (test 107 mL/min/1.73 ESTIM ATED GFR IS code = 1092) sq m NOT ACCURATE CREATININE CLEARANCE IN PREDICTING GLOMERULAR FILTRATION RATE . ESTIMATED GFR I S NOT APPLICABLE FOR DIALYSIS PATIEN TS. POCT-GLUCOSE [id number] 17:33:00 Test Item Value Reference Range Interpretation Comments POC-GLUCOSE METER 146 mg/dL 70-110 H TESTED AT [place] [address] ([facility] (test code = JOSEPH Arnett [facility] 1538) [id number] POCT-GLUCOSE [id number] 11:25:00 Test Item Value Reference Range Interpretation Comments POC-GLUCOSE METER 160 mg/dL 70-110 H TESTED AT [place] [address] ([facility] (test code = JOSEPH Arnett [facility] 1538) [id number] POCT-GLUCOSE [id number] 08:37:00 Test Item Value Reference Range Interpretation Comments POC-GLUCOSE METER 158 mg/dL 70-110 H TESTED AT [place] [address] ([facility] (test code = JOSEPH Arnett [facility] 1538) [id number] RAD, ABDOMEN/KUB, 1 VIEW [id number] 08:30:00Reason for exam:->abdominal distention, ? constipationShould this be performed at the bedside?->YesFINAL REPORT RAD, ABDOMEN/KUB, 1 VIEW AP CLINICAL INDICATION: abdominal distention, ? constipation COMPARISON: None TECHNIQUE: Two frontal radiographs of the abdomen. IMPRESSION: The bowel gas pattern is nonspecific, but nonobstructive. Moderate colonic stool burden without pneumatosis. Appearance is compatible with provided symptoms of constipation. Signed: JR Burrows Robert MDRthe [facility] Verified Date/Time: 01/25/2019 08:30:50 Reading Location: [facility] Radiology Reading Room RAD, CHEST, 1 VIEW, NON DEPT 2019-01-25 08:07:00Reason for exam:->PNEUMONIAShould this be performed at the bedside?->YesFINAL REPORT RAD, CHEST, 1 VIEW, NON DEPT INDICATION: PNEUMONIA COMPARISON: Prior day's exam FINDINGS: Portable frontal view of the chest. IMPRESSION: Support Lines: Stable. Lungs and pleura: Contraction of consolidative changes on the left. Nodular opacity on the right is stable.No new effusion. No pneumothorax.Heart and mediastinum: Stable contours. Additional findings: None. Signed: JR Stormy, Constantino Ramos Verified Date/Time: 01/25/2019 08:07:11 Reading Location: [facility] Radiology Reading Room BLOOD GAS, [id number] 08:00:00 Test Item Value Reference Range Interpretation Comments PH ARTERIAL (BEAKER) (test code = 7.45 7.35-7.45 383) PCO2 ARTERIAL (BEAKER) (test code 43 mmHg 35-45 = 384) PO2 ARTERIAL (BEAKER) (test code = 83 mmHg 80-90 385) O2 SATURATION ARTERIAL (BEAKER) 96.7 % 96.0-97.0 (test code = 386) HCO3 ARTERIAL (BEAKER) (test code 29 mmol/L 21-29 = 388) BASE EXCESS ARTERIAL (BEAKER) 4.5 mmol/L -2.0-3.0 H (test code = 387) PATIENT TEMPERATURE (BEAKER) (test 36.7 C code = 1818) FIO2 (BEAKER) (test code = 1819) 60.0 % CREATINE KINASE (CK)2019-01-25 07:40:00 Test Item Value Reference Range Interpretation Comments CREATINE KINASE TOTAL (BEAKER) (test 28 U/L 29-200 L code = 380) CBC W/PLT COUNT & AUTO [id number] 07:20:00 Test Item Value Reference Range Interpretation Comments WHITE BLOOD CELL COUNT (BEAKER) 13.7 K/ L 3.5-10.5 H (test code = 775) RED BLOOD CELL COUNT (BEAKER) 3.32 M/ L 4.63-6.08 L (test code = 761) HEMOGLOBIN (BEAKER) (test code = 11.1 GM/DL 13.7-17.5 L 410) HEMATOCRIT (BEAKER) (test code = 33.2 % 40.1-51.0 L 411) MEAN CORPUSCULAR VOLUME (BEAKER) 100.0 fL 79.0-92.2 H (test code = 753) MEAN CORPUSCULAR HEMOGLOBIN 33.4 pg 25.7-32.2 H (BEAKER) (test code = 751) MEAN CORPUSCULAR HEMOGLOBIN CONC 33.4 GM/DL 32.3-36.5 (BEAKER) (test code = 752) RED CELL DISTRIBUTION WIDTH 15.9 % 11.6-14.4 H (BEAKER) (test code = 412) PLATELET COUNT (BEAKER) (test 140 K/CU MM 150-450 L code = 756) MEAN PLATELET VOLUME (BEAKER) 12.0 fL 9.4-12.4 (test code = 754) NUCLEATED RED BLOOD CELLS 0 /100 WBC 0-0 (BEAKER) (test code = 413) (CELLAVISION MANUAL DIFF)2019-01-25 07:20:00 Test Item Value Reference Range Interpretation Comments NEUTROPHILS - REL 90 % (CELLAVISION)(BEAKER) (test code = 2816) LYMPHOCYTES - REL 8 % (CELLAVISION)(BEAKER) (test code = 2817) BANDS - REL (CELLAVISION)(BEAKER) 1 % 0-10 (test code = 2826) ATYPICAL LYMPHOCYTES - REL 1 % 0-0 H (CELLAVISION)(BEAKER) (test code = 2829) NEUTROPHILS - ABS 12.33 K/ul 1.78-5.38 H (CELLAVISION)(BEAKER) (test code = 2830) LYMPHOCYTES - ABS 1.10 K/ul 1.32-3.57 L (CELLAVISION)(BEAKER) (test code = 2831) BANDS - ABS (CELLAVISION)(BEAKER) 0.14 K/uL 0.00-0.80 (test code = 2840) ATYPICAL LYMPHOCYTES - ABS 0.14 K/uL 0.00-0.00 H (CELLAVISION)(BEAKER) (test code = 2858) TOTAL COUNTED (BEAKER) (test code 100 = 1351) MANUAL NRBC PER 100 CELLS (BEAKER) 1 /100 WBC 0-0 H (test code = 1353) WBC MORPHOLOGY (BEAKER) (test code Normal = 487) PLT MORPHOLOGY (BEAKER) (test code Normal = 486) ANISOCYTOSIS (BEAKER) (test code = 1+ few 961) MACROCYTES (BEAKER) (test code = 1+ few 964) ARTIFACT (CELLAVISION)(BEAKER) Present (test code = 3432) PLATELET CONCENTRATION Decreased (CELLAVISION)(BEAKER) (test code = 9980) Received comment: User comments: Slide comments:POCT-GLUCOSE [id number] 05:22:00 Test Item Value Reference Range Interpretation Comments POC-GLUCOSE METER 160 mg/dL 70-[address] [facility] [address] (BEAKER) (test code = [place] 1538) [id number] B-TYPE NATRIURETIC FACTOR (BNP)2019-01-25 03:52:00 Test Item Value Reference Range Interpretation Comments B-TYPE NATRIURETIC PEPTIDE (BEAKER) 309 pg/mL 0-100 H (test code = 700) [id number] 03:47:00 Test Item Value Reference Range Interpretation Comments PHOSPHORUS (BEAKER) (test code = 4.4 mg/dL 2.3-4.7 604) [id number] 03:47:00 Test Item Value Reference Range Interpretation Comments MAGNESIUM (BEAKER) (test code = 2.5 mg/dL 1.6-2.6 627) COMPREHENSIVE METABOLIC [id number] 03:47:00 Test Item Value Reference Range Interpretation Comments TOTAL PROTEIN 5.6 gm/dL 6.0-8.3 L (BEAKER) (test code = 770) ALBUMIN (BEAKER) 2.5 g/dL 3.5-5.0 L (test code = 1145) ALKALINE PHOSPHATASE 211 U/L 40-150 H (BEAKER) (test code = 346) BILIRUBIN TOTAL 1.0 mg/dL 0.2-1.2 (BEAKER) (test code = 377) SODIUM (BEAKER) (test 146 meq/L 136-145 H code = 381) POTASSIUM (BEAKER) 5.3 meq/L 3.5-5.1 H (test code = 379) CHLORIDE (BEAKER) 110 meq/L 98-107 H (test code = 382) CO2 (BEAKER) (test 29 meq/L 22-29 code = 355) BLOOD UREA NITROGEN 47 mg/dL 7-21 H (BEAKER) (test code = 354) CREATININE (BEAKER) 0.89 mg/dL 0.57-1.25 (test code = 358) GLUCOSE RANDOM 173 mg/dL 70-105 H (BEAKER) (test code = 652) CALCIUM (BEAKER) 8.5 mg/dL 8.4-10.2 (test code = 697) AST (SGOT) (BEAKER) 13 U/L 5-34 (test code = 353) ALT (SGPT) (BEAKER) 46 U/L 6-55 (test code = 347) EGFR (BEAKER) (test 85 mL/min/1.73 ESTIMA KAMERON GFR IS code = 1092) sq m NOT ACCURATE CREATININE CLEARANCE IN PREDICTING GLOMERULAR FILTRATION RATE . ESTIMATED GFR I S NOT APPLICABLE FOR DIALYSIS PATIEN TS. [id number] 00:36:00 Test Item Value Reference Range Interpretation Comments POTASSIUM (BEAKER) (test code = 5.7 meq/L 3.5-5.1 H 379) POCT-GLUCOSE [id number] 00:31:00 Test Item Value Reference Range Interpretation Comments POC-GLUCOSE METER 186 mg/dL 70-[address] [facility] [address] (BEAKER) (test code = [place] 1538) [id number] BASIC METABOLIC [id number] 21:20:00 Test Item Value Reference Range Interpretation Comments SODIUM (BEAKER) 145 meq/L 136-145 (test code = 381) POTASSIUM (BEAKER) 6.0 meq/L 3.5-5.1 HH (test code = 379) CHLORIDE (BEAKER) 111 meq/L 98-107 H (test code = 382) CO2 (BEAKER) (test 28 meq/L 22-29 code = 355) BLOOD UREA NITROGEN 46 mg/dL 7-21 H (BEAKER) (test code = 354) CREATININE (BEAKER) 0.85 mg/dL 0.57-1.25 (test code = 358) GLUCOSE RANDOM 143 mg/dL 70-105 H (BEAKER) (test code = 652) CALCIUM (BEAKER) 8.3 mg/dL 8.4-10.2 L (test code = 697) EGFR (BEAKER) (test 90 mL/min/1.73 ESTIMA KAMERON GFR IS code = 1092) sq m NOT ACCURATE CREATININE CLEARANCE IN PREDICTING GLOMERULAR FILTRATION RATE . ESTIMATED GFR I S NOT APPLICABLE FOR DIALYSIS PATIEN TS. [id number] 21:16:00 Test Item Value Reference Range Interpretation Comments MAGNESIUM (BEAKER) (test code = 2.7 mg/dL 1.6-2.6 H 627) POCT-GLUCOSE [id number] 17:32:00 Test Item Value Reference Range Interpretation Comments POC-GLUCOSE METER 143 mg/dL 70-[address] [facility] [address] [facility] (test code = [place] 1538) [id number] POCT-GLUCOSE [id number] 11:37:00 Test Item Value Reference Range Interpretation Comments POC-GLUCOSE METER 158 mg/dL 70-[address] [facility] [address] ([facility] (test code = [place] 1538) [id number] 10:48:00 Test Item Value Reference Range Interpretation Comments PROCALCITONIN (BEAKER) (test code 2.73 ng/mL <0.05 H = 3036) SEPSIS RISK (ng/mL)Low: 0.05-0.50Intermediate: 0.51-2.00High: >=2.01BASIC METABOLIC [id number] 08:47:00 Test Item Value Reference Range Interpretation Comments SODIUM (BEAKER) (test 143 meq/L 136-145 code = 381) POTASSIUM (BEAKER) 5.0 meq/L 3.5-5.1 (test code = 379) CHLORIDE (BEAKER) 108 meq/L 98-107 H (test code = 382) CO2 (BEAKER) (test 25 meq/L 22-29 code = 355) BLOOD UREA NITROGEN 40 mg/dL 7-21 H (BEAKER) (test code = 354) CREATININE (BEAKER) 0.75 mg/dL 0.57-1.25 (test code = 358) GLUCOSE RANDOM 80 mg/dL 70-105 (BEAKER) (test code = 652) CALCIUM (BEAKER) 7.9 mg/dL 8.4-10.2 L (test code = 697) EGFR (BEAKER) (test INSUFFIC IENT CLINICAL code = 1092) DATA TO CALCULA TE ESTIMATED GFR. CBC W/PLT COUNT & AUTO [id number] 08:39:00 Test Item Value Reference Range Interpretation Comments WHITE BLOOD CELL COUNT (BEAKER) 18.9 K/ L 3.5-10.5 H (test code = 775) RED BLOOD CELL COUNT (BEAKER) 3.57 M/ L 4.63-6.08 L (test code = 761) HEMOGLOBIN (BEAKER) (test code = 12.0 GM/DL 13.7-17.5 L 410) HEMATOCRIT (BEAKER) (test code = 35.7 % 40.1-51.0 L 411) MEAN CORPUSCULAR VOLUME (BEAKER) 100.0 fL 79.0-92.2 H (test code = 753) MEAN CORPUSCULAR HEMOGLOBIN 33.6 pg 25.7-32.2 H (BEAKER) (test code = 751) MEAN CORPUSCULAR HEMOGLOBIN CONC 33.6 GM/DL 32.3-36.5 (BEAKER) (test code = 752) RED CELL DISTRIBUTION WIDTH 16.0 % 11.6-14.4 H (BEAKER) (test code = 412) PLATELET COUNT (BEAKER) (test 115 K/CU MM 150-450 L code = 756) MEAN PLATELET VOLUME (BEAKER) 12.4 fL 9.4-12.4 (test code = 754) NUCLEATED RED BLOOD CELLS 0 /100 WBC 0-0 (BEAKER) (test code = 413) (CELLAVISION MANUAL DIFF)2019-01-24 08:39:00 Test Item Value Reference Range Interpretation Comments NEUTROPHILS - REL 95 % (CELLAVISION)(BEAKER) (test code = 2816) LYMPHOCYTES - REL 1 % (CELLAVISION)(BEAKER) (test code = 2817) EOSINOPHILS - REL 4 % (CELLAVISION)(BEAKER) (test code = 2819) NEUTROPHILS - ABS 17.96 K/ul 1.78-5.38 H (CELLAVISION)(BEAKER) (test code = 2830) LYMPHOCYTES - ABS 0.19 K/ul 1.32-3.57 L (CELLAVISION)(BEAKER) (test code = 2831) EOSINOPHILS - ABS 0.76 K/uL 0.04-0.54 H (CELLAVISION)(BEAKER) (test code = 2834) TOTAL COUNTED (BEAKER) (test code 100 = 1351) RBC MORPHOLOGY (BEAKER) (test code Normal = 762) PLT MORPHOLOGY (BEAKER) (test code Normal = 486) TOXIC GRANULATION (BEAKER) (test Present code = 771) ARTIFACT (CELLAVISION)(BEAKER) Present (test code = 3432) PLATELET CONCENTRATION Decreased (CELLAVISION)(BEAKER) (test code = 3438) Received comment: User comments: Slide comments:[id number] 05:57:00 Test Item Value Reference Range Interpretation Comments AMMONIA (BEAKER) (test code = 348) 52 mol/L 18-72 RAD, CHEST, 1 VIEW, NON [id number] 05:42:00Reason for exam:->increased WOB, history of secondary pneumothoraxShould this be performed at the bedside?->YesFINAL REPORT INDICATION: increased WOB, history of secondary pneumothorax COMPARISON: Exam from eight hours prior TECHNIQUE: Single frontal view of the chest. IMPRESSION: Lungs andpleura: No change in patchy and consolidative airspace opacities concerning for multifocal pneumonia. Additional unchanged more nodular opacity at the right lung apex. No new airspace consolidation. Costophrenic angles are sharp. No pneumothorax.Heart and mediastinum: Normal heart size. Unremarkable mediastinal contours.Osseous structures: No acute abnormality.Other: None. Signed: Nicolasa Aguilera MDReport Verified Date/Time: 01/24/2019 05:42:52 05:42 [id number] 05:10:00 Test Item Value Reference Range Interpretation Comments PROTIME (BEAKER) (test code = 14.4 seconds 11.9-14.2 H 759) INR (BEAKER) (test code = 370) 1.2 <=5.9 PARTIAL THROMBOPLASTIN TIME 36.5 seconds 22.5-36.0 H (BEAKER) (test code = 760) Effective 09/15/2018: PT Reference Range ChangeNew: 11.9-14.2 Previous: 11.7- 14.7RECOMMENDED COUMADIN/WARFARIN INR THERAPY RANGESSTANDARD DOSE: 2.0-3.0 Includes: PROPHYLAXIS for venous thrombosis, systemic embolization; TREATMENT for venous thrombosis and/or pulmonary embolus.HIGH RISK: Target INR is 2.5-3.5 for patients wiht mechanical heart valves.RAD, CHEST, 1 VIEW, NON [id number] 03:29:00Reason for exam:->intubated, CAPShould this be performed at the bedside?->YesFINAL REPORT INDICATION: intubated, CAP COMPARISON: 09/09/2015 TECHNIQUE: Singlefrontal view of the chest. FINDINGS: Lungs and pleura: There is extensive airspace and interstitial opacities of the left lung greatest in the left perihilar region and less confluent multifocal airspace opacities within the right lung compatible with multifocal pneumonia. No effusion.Heart and mediastinum: Normal heart size. Unremarkable mediastinal contours.Osseous structures: No acute abnormality.Other: None. IMPRESSION: Left greater than right airspace opacities compatible with multifocal pneumonia. Signed: Nicolasa Aguilera MDReport Verified Date/Time: 01/24/2019 03:29:01 URINALYSIS W/ REFLEX URINE [id number] 02:41:00 Test Item Value Reference Range Interpretation Comments COLOR (BEAKER) (test code = 470) Yellow CLARITY (BEAKER) (test code = 469) Clear SPECIFIC GRAVITY UA (BEAKER) (test 1.037 1.001-1.035 H code = 468) PH UA (BEAKER) (test code = 467) 5.5 5.0-8.0 PROTEIN UA (BEAKER) (test code = 10 mg/dL Negative A 464) GLUCOSE UA (BEAKER) (test code = Negative Negative 365) KETONES UA (BEAKER) (test code = Negative Negative 371) BILIRUBIN UA (BEAKER) (test code = Negative Negative 462) BLOOD UA (BEAKER) (test code = 461) Small Negative A NITRITE UA (BEAKER) (test code = Negative Negative 465) LEUKOCYTE ESTERASE UA (BEAKER) Trace Negative A (test code = 466) UROBILINOGEN UA (BEAKER) (test code 0.2 mg/dL 0.2-1.0 = 463) RBC UA (BEAKER) (test code = 519) 30 /HPF WBC UA (BEAKER) (test code = 520) 17 /HPF SOURCE(BEAKER) (test code = 2795) BASIC METABOLIC [id number] 00:44:00 Test Item Value Reference Range Interpretation Comments SODIUM (BEAKER) (test 144 meq/L 136-145 code = 381) POTASSIUM (BEAKER) 4.9 meq/L 3.5-5.1 (test code = 379) CHLORIDE (BEAKER) 111 meq/L 98-107 H (test code = 382) CO2 (BEAKER) (test 23 meq/L 22-29 code = 355) BLOOD UREA NITROGEN 45 mg/dL 7-21 H (BEAKER) (test code = 354) CREATININE (BEAKER) 0.82 mg/dL 0.57-1.25 (test code = 358) GLUCOSE RANDOM 120 mg/dL 70-105 H (BEAKER) (test code = 652) CALCIUM (BEAKER) 8.5 mg/dL 8.4-10.2 (test code = 697) EGFR (BEAKER) (test INSUFFIC IENT CLINICAL code = 1092) DATA TO CALCULA TE ESTIMATED GFR. BLOOD GAS, [id number] 00:13:00 Test Item Value Reference Range Interpretation Comments PH ARTERIAL (BEAKER) (test code = 7.38 7.35-7.45 383) PCO2 ARTERIAL (BEAKER) (test code 46 mmHg 35-45 H = 384) PO2 ARTERIAL (BEAKER) (test code = 88 mmHg 80-90 385) O2 SATURATION ARTERIAL (BEAKER) 96.0 % 96.0-97.0 (test code = 386) HCO3 ARTERIAL (BEAKER) (test code 26 mmol/L 21-29 = 388) BASE EXCESS ARTERIAL (BEAKER) 0.7 mmol/L -2.0-3.0 (test code = 387) PATIENT TEMPERATURE (BEAKER) (test 38.0 C code = 1818) FIO2 (BEAKER) (test code = 1819) 60.0 % CT, CHEST WITH IV CONTRAST- PE TEST [id number] 23:25:00Reason for exam:- >hypoxia, tachypnea, active smokerFINAL REPORT EXAM: CT of the chest, with contrast, PE protocol CLINICAL HISTORY: Shortness of breath. PE suspected, high pretest probability; hypoxia, tachypnea, active smoker TECHN IQUE: Chest CT was performed with intravenous contrast utilizing a PE protocol. 2-D and 3-D reformatted images were obtained. This exam was performed according to our departmental dose optimization program which includes automated exposure control, adjustment of the mA and/or kV according to patient'ssize and/or use of iterative reconstructive technique. COMPARISON: Chest CT 09/06/2015. FINDINGS: LOWER NECK: Right PICC line with tip in the SVC.AIRWAYS, LOWER AND LUNGS: Patent central tracheobronchial tree. Endotracheal tube in satisfactory position. Severe upper lobe predominant emphysema. Spiculated mass in the right lung apex measuring approximately 2.5 x 2 cm, new in the interval (image 10). 2.6 x 1.5 cm spiculated mass in the right upper lobe, new in the interval (image 18). 1.2 x 2.9 cm right upper lobe nodule, which may have been present on prior exam. Image 22). Small left pleural effusion. Diffuse consolidative airspace opacity in the left upper lobe, left lower lobe and to lesser extent the right lower lobe and lingula consistent with pneumonia. Calcified left lower lobe granuloma. No pneumothorax.VESSELS: Atherosclerotic calcifications of the aorta and branches. No pulmonary embolism.HEART: Normal heart size. No pericardial effusion.ISACC AND MEDIASTINUM: Multiple subcentimeter mediastinal and hilar nodules and a 1.2 cm short axis right hilar lymph node, nonspecific and may be reactive, infectious, inflammatory or neoplastic.VISUALIZED UPPER ABDOMEN: Feeding tube with tip in the stomach. Nonspecific diffuse bilateral perinephric stranding. Mild nonspecific bilateral nodular adrenal gland thickening.SOFT TISSUES: Within normal limits.BONES: Generalized osteopenia. Spondylosis deformans. No suspicious osseous lesions. IMPRESSION:No pulmonary embolism. Severe emphysema. 2.5 x 2 cmright apical mass and 2.6 x 1.5 cm spiculated right upper lobe, new in the interval suspicious for malignancy. 1.2 x 0.9 cm right upper lobe nodule, which may have been present on prior exam for which primary malignancy cannot be excluded. Consider tissue sampling. Multilobar pneumonia. Small left pleural effusion. Diffuse bilateral perinephric stranding, nonspecific. Correlate with urinalysis. Signed: Kyrie Raman MDRepcit[facility] memorial healthcare Verified Date/Time: 01/23/2019 23:25:23 CT, BRAIN, WITHOUT [id number] 22:57:00Reason for exam:->confusion FINAL REPORT EXAM: CT head without contrast. CLINICAL HISTORY: Altered mental status and confusion. COMPARISON: None. TECHNIQUE: CT images of the head were obtained without intravenous contrast. This exam was performed according to our departmental dose optimization program which includes automated exposure control, adjustment of the mA and/or kV according to patient's size and/or use of iterative reconstructive technique. FINDINGS:There is generalized parenchymal atrophy. Thereis no acute intracranial hemorrhage, extra-axial fluid collection, mass effect, herniation, hydrocephalus or large demarcated acute territorial infarct. The basal cisterns are patent. There is intracranial calcific atherosclerosis. There are bilateral lens replacements. The visualized paranasal sinuses and tympanomastoid cavities are clear. The skull base and calvarium are intact. There are indwelling endotracheal and orogastric tubes. IMPRESSION: No CT evidence of an acute intracranial process. MRImay be performed for further evaluation if clinical suspicion for acute intracranial pathology persists. Signed: Kyrie Raman MDReport Verified Date/Time: 01/23/2019 22:57:14 (CELLAVISION MANUAL DIFF)2019-01-23 21:20:00 Test Item Value Reference Range Interpretation Comments NEUTROPHILS - REL 81 % (CELLAVISION)(BEAKER) (test code = 2816) LYMPHOCYTES - REL 7 % (CELLAVISION)(BEAKER) (test code = 2817) MONOCYTES - REL 4 % (CELLAVISION)(BEAKER) (test code = 2818) EOSINOPHILS - REL 5 % (CELLAVISION)(BEAKER) (test code = 2819) BANDS - REL (CELLAVISION)(BEAKER) 2 % 0-10 (test code = 2826) ATYPICAL LYMPHOCYTES - REL 1 % 0-0 H (CELLAVISION)(BEAKER) (test code = 2829) NEUTROPHILS - ABS 15.71 K/ul 1.78-5.38 H (CELLAVISION)(BEAKER) (test code = 2830) LYMPHOCYTES - ABS 1.36 K/ul 1.32-3.57 (CELLAVISION)(BEAKER) (test code = 2831) MONOCYTES - ABS 0.78 K/uL 0.30-0.82 (CELLAVISION)(BEAKER) (test code = 2832) EOSINOPHILS - ABS 0.97 K/uL 0.04-0.54 H (CELLAVISION)(BEAKER) (test code = 2834) BANDS - ABS (CELLAVISION)(BEAKER) 0.39 K/uL 0.00-0.80 (test code = 2840) ATYPICAL LYMPHOCYTES - ABS 0.19 K/uL 0.00-0.00 H (CELLAVISION)(BEAKER) (test code = 2858) TOTAL COUNTED (BEAKER) (test code 100 = 1351) SMUDGE CELLS (BEAKER) (test code Present = 1371) GIANT PLATELETS (BEAKER) (test Present code = 313) LARGE PLT(BEAKER) (test code = Present 2156) ANISOCYTOSIS (BEAKER) (test code 2+ moderate = 961) MACROCYTES (BEAKER) (test code = 2+ moderate 964) POIKILOCYTES (BEAKER) (test code 1+ few = 966) TARGET CELLS (BEAKER) (test code 1+ few = 480) SPHEROCYTES (BEAKER) (test code = 1+ few 768) OVALOCYTES (BEAKER) (test code = 1+ few 477) TEAR DROP CELLS (BEAKER) (test 1+ few code = 481) ARTIFACT (CELLAVISION)(BEAKER) Present (test code = 3432) PLATELET CONCENTRATION Decreased (CELLAVISION)(BEAKER) (test code = 3438) Received comment: User comments: Slide comments:CBC W/PLT COUNT & AUTO [id number] 21:19:00 Test Item Value Reference Range Interpretation Comments WHITE BLOOD CELL COUNT (BEAKER) 19.4 K/ L 3.5-10.5 H (test code = 775) RED BLOOD CELL COUNT (BEAKER) 3.91 M/ L 4.63-6.08 L (test code = 761) HEMOGLOBIN (BEAKER) (test code = 13.1 GM/DL 13.7-17.5 L 410) HEMATOCRIT (BEAKER) (test code = 38.6 % 40.1-51.0 L 411) MEAN CORPUSCULAR VOLUME (BEAKER) 98.7 fL 79.0-92.2 H (test code = 753) MEAN CORPUSCULAR HEMOGLOBIN 33.5 pg 25.7-32.2 H (BEAKER) (test code = 751) MEAN CORPUSCULAR HEMOGLOBIN CONC 33.9 GM/DL 32.3-36.5 (BEAKER) (test code = 752) RED CELL DISTRIBUTION WIDTH 16.2 % 11.6-14.4 H (BEAKER) (test code = 412) PLATELET COUNT (BEAKER) (test 116 K/CU MM 150-450 L code = 756) MEAN PLATELET VOLUME (BEAKER) 12.8 fL 9.4-12.4 H (test code = 754) NUCLEATED RED BLOOD CELLS 0 /100 WBC 0-0 (BEAKER) (test code = 413) B-TYPE NATRIURETIC FACTOR (BNP)2019-01-23 21:16:00 Test Item Value Reference Range Interpretation Comments B-TYPE NATRIURETIC PEPTIDE (BEAKER) 574 pg/mL 0-100 H (test code = 700) TROPONIN [id number] 21:07:00 Test Item Value Reference Range Interpretation Comments TROPONIN I (BEAKER) (test code = 397) < ng/mL 0.00-0.03 Troponin I (TnI) levels must be interpreted in the context of the presenting symptoms and the clinical findings. Elevated TnI levels indicate myocardial damage, but are not specific for ischemic heart disease. Elevated TnI levels are seen in patients with other cardiac conditions (including myocarditis and congestive heart failure), and slight TnI elevations occur in patients with other conditions, including sepsis, renal failure, acidosis, acute neurological disease, and persistent tachyarrhythmia.COMPREHENSIVE METABOLIC [id number] 21:05:00 Test Item Value Reference Range Interpretation Comments TOTAL PROTEIN 6.0 gm/dL 6.0-8.3 Specimen sligh tly (BEAKER) (test code = hemoly zed 770) ALBUMIN (BEAKER) 2.7 g/dL 3.5-5.0 L Specimen sl ightly (test code = 1145) hemolyzed ALKALINE PHOSPHATASE 210 U/L 40-150 H (BEAKER) (test code = 346) BILIRUBIN TOTAL 1.5 mg/dL 0.2-1.2 H Specimen sli ghtly (BEAKER) (test code = hemoly zed 377) SODIUM (BEAKER) (test 145 meq/L 136-145 code = 381) POTASSIUM (BEAKER) 5.7 meq/L 3.5-5.1 H Specimen slightly (test code = 379) hemolyzed CHLORIDE (BEAKER) 111 meq/L 98-107 H (test code = 382) CO2 (BEAKER) (test 24 meq/L 22-29 code = 355) BLOOD UREA NITROGEN 46 mg/dL 7-21 H (BEAKER) (test code = 354) CREATININE (BEAKER) 0.87 mg/dL 0.57-1.25 Specimen slightly (test code = 358) hemolyzed GLUCOSE RANDOM 113 mg/dL 70-105 H (BEAKER) (test code = 652) CALCIUM (BEAKER) 8.4 mg/dL 8.4-10.2 (test code = 697) AST (SGOT) (BEAKER) 33 U/L 5-34 Specimen slightly (test code = 353) hemolyzed ALT (SGPT) (BEAKER) 71 U/L 6-55 H Specimen slightly (test code = 347) hemolyzed EGFR (BEAKER) (test INSUFFIC IENT CLINICAL code = 1092) DATA TO CALCULA TE ESTIMATED GFR. [id number] 21:01:00 Test Item Value Reference Range Interpretation Comments MAGNESIUM (BEAKER) 2.5 mg/dL 1.6-2.6 Specimen slightly (test code = 627) hemolyzed [id number] 21:01:00 Test Item Value Reference Range Interpretation Comments PHOSPHORUS (BEAKER) 3.9 mg/dL 2.3-4.7 Specimen slightly (test code = 604) hemolyzed LACTIC ACID, [id number] 20:55:00 Test Item Value Reference Range Interpretation Comments LACTATE BLOOD VENOUS 0.9 mmol/L 0.5-2.2 Specime n slightly (2) (BEAKER) (test hemolyzed code = 2872) BLOOD GAS, [id number] 20:46:00 Test Item Value Reference Range Interpretation Comments PH ARTERIAL (BEAKER) (test code = 7.42 7.35-7.45 383) PCO2 ARTERIAL (BEAKER) (test code 40 mmHg 35-45 = 384) PO2 ARTERIAL (BEAKER) (test code = 62 mmHg 80-90 L 385) O2 SATURATION ARTERIAL (BEAKER) 92.3 % 96.0-97.0 L (test code = 386) HCO3 ARTERIAL (BEAKER) (test code 26 mmol/L 21-29 = 388) BASE EXCESS ARTERIAL (BEAKER) 1.0 mmol/L -2.0-3.0 (test code = 387) PATIENT TEMPERATURE (BEAKER) (test 36.8 C code = 1818) FIO2 (BEAKER) (test code = 1819) 60.0 %
[2022-09-11] MEDS ORDERED: ACETAMINOPHEN 500 MG TAB PO PRN (18:06)
[2022-09-11] MEDS ORDERED: GUAIFENESIN/DM 5 ML UCUP PO PRN (18:06)
[2022-09-11] MEDS: ALBUTEROL 2.5 MG/3 ML NEB SOL NEB SCH ×2 (18:23→20:00)
[2022-09-11] MEDS: IPRATROPIUM BROM 0.5MG/2.5ML NEB SCH ×2 (18:23→20:00)
[2022-09-11 18:52] LABS: Absolute Lymphocytes (CBC) 1.7 K/uL (0.7-4.9); Hematocrit 36.3 % (39.6-49.0); Lymphocytes % 21.6 % (15.3-44.8); MCV 91.9 fL (80-100); MPV 7.1 fL (7.6-11.3); RBC Red Blood Cell Count 3.95 M/uL (4.33-5.43)
--- NOTE | 2022-09-11 19:00 | RAD REPORT ---
EXAM DESCRIPTION: RADSantost Pa And Lat (2 Views)09/11/2022 6:37 pm CLINICAL HISTORY: Cough COMPARISON: June 2022 FINDINGS: Moderate patchy left upper lobe opacities have developed. Additional bilateral chronic appearing lung opacities. Lungs are moderately hyperaerated. Heart is normal size IMPRESSION: Moderate patchy left upper lobe opacities could represent an atypical or bacterial pneum onia
[2022-09-11 19:08] LABS: Albumin 4.1 g/dL (3.4-5.0); Bilirubin Total 0.9 mg/dL (0.2-1.0); Magnesium 2.3 mg/dL (1.6-2.4); Potassium 3.2 mEq/L (3.5-5.1); Protein, Total 8.2 g/dL (6.4-8.2)
[2022-09-11] MEDS: Levofloxacin500mg IV 500 MG/100 ML BAG IV SCH (20:28)
[2022-09-11] MEDS: ENOXAPARIN 40 MG/0.4 ML SQ SCH (20:41)
[2022-09-11 20:45] VITALS: BMI 21.7
[2022-09-11] MEDS ORDERED: METOPROLOL TAR 25 MG TAB PO SCH (21:00)
[2022-09-11] MEDS ORDERED: POTASSIUM 25 MEQ EFFERV TAB PO ONE (23:04)
[2022-09-12] MEDS: IPRATROPIUM BROM 0.5MG/2.5ML NEB SCH ×4 (01:20→19:15)
[2022-09-12] MEDS: ALBUTEROL 2.5 MG/3 ML NEB SOL NEB SCH ×4 (01:20→19:15)
--- NOTE | 2022-09-12 01:56 | HP ---
Date of Admission: 09/11/2022 Chief Complaint: Fever, shortness of breath, feeling weak and tired. History Of Present Illness: This is a 71-year-old very pleasant male patient who came into office to day with 4 days' history of fever, feeling very weak and tired, sleepy, and shortness of breath. He has some cough, but no expectoration. No hemoptysis. No nausea, vomiting, or diarrhea. He came int o office with his with these complaints and his room air oxygen saturation at rest was 92%, but with walking for about 1 minute, his oxygen saturation dropped down to 82% with obvious shortness of breath symptom. After he was evaluated, decision was made to admit him to hospital. Allergies: TO HYDROCODONE, CAUSING INSOMNIA AND FEELING NERVOUS. Medications: He takes atorvastatin 20 mg daily at bedtime, ProAir inhaler 2 puffs every 4 hours as n eeded for shortness of breath, amlodipine 10 mg daily, metoprolol tartrate 25 mg 2 times a day, Spiri va inhaler 1 puff daily, and Advair inhaler 250/50 one puff 2 times a day, Colace 100 mg 2 times a da y, Folbic 1 tablet daily. Review of Systems: Constitutional: As mentioned above. Respiratory: As mentioned above. All other systems reviewed and negative. Past Medical History: Significant for COPD; pulmonary fibrosis; hypertension; hyperlipidemia; periph eral vascular disease; coronary atherosclerosis; gastroesophageal reflux disease; constipation; chron ic kidney disease, stage 3A; erectile dysfunction; and folic acid deficiency. Past Surgical History: Significant for back surgery and vasectomy. Family History: Father , had COPD and lung cancer. Mother , had dementia and stroke. Social History: Prior history of smoking, not at present time. Use of alcohol negative. Physical Examination: Vital Signs: Blood pressure is 138/64, pulse 97, temperature 99.5, respiratory rate 18, weight 156.4 pounds, height 70 inches. Oxygen saturation at rest on room air and with ambulation dropped down to 82%. General: Awake, alert, oriented, not in distress. HEENT: Head atraumatic, normocephalic. Conjunctivae nonerythematous. Sclerae white. Mouth, no thr ush or edema noted. Ears/Nose, no mass, lesion, discharge noted. Neck: Supple. No JVD, lymph nodes, bruit, thyromegaly noted. Lungs: Bilateral poor air exchange. Not using any accessory muscles of respiration at rest. Heart: Normal heart sounds, no murmur or gallop. Abdomen: Soft, bowel sounds normal. No guarding, rigidity, tenderness, mass, hepatosplenomegaly, dis tention, or bruit noted. Extremities: No leg edema. No calf tenderness. Skin: No rash, ulcer, cellulitis. Lymphatics: No lymph node enlargement in neck, supraclavicular, infraclavicular region. Neuro: No focal neurological deficit. Chest: Unremarkable. External Genitalia: Deferred. Rectal: Deferred. Laboratory Data: Chest x-ray shows left upper lobe opacity. WBC 7.8, hemoglobin 12.6, platelets 202 . Sodium 136, potassium 3.2, chloride 103, bicarb 23, BUN 26, creatinine 1.57, glucose 87. Liver fu nction tests unremarkable. Impression: 1.Acute exacerbation of chronic obstructive pulmonary disease. 2.Acute respiratory failure with hypoxia. 3.Pneumonia. 4.Pulmonary fibrosis. 5.Chronic kidney disease, stage 3A. 6.Hypokalemia. 7.Hypertension. 8.Hyperlipidemia. 9.Peripheral vascular disease. 10.Gastroesophageal reflux disease. 11.Chronic constipation. 12.Coronary atherosclerosis. 13.Folic acid deficiency. Plan: We will admit patient to hospital for further evaluation of this problem. The patient is appr opriate for inpatient and is expected to spend 2 midnights in the hospital. The patient's chest x-ra y findings reviewed. We will go ahead and get a CAT scan of the chest without contrast, probably georges orrow. We will go ahead and start him on oxygen 2 L/minute nasal cannula. Empiric antibiotic Levaqu in will be started. We will go ahead and start nebulizer treatment, albuterol and Atrovent every 6 h ours, and Solu-Medrol 60 mg IV every 6 hours. We will continue his blood pressure medications for hy pertension, which is metoprolol and amlodipine. Monitor blood pressure and if necessary, make adjust ment on blood pressure medication. For his hyperlipidemia, we will continue his statin therapy, whic h is atorvastatin 20 mg daily at bedtime. DVT prophylaxis will be given using Lovenox per order. Co de status discussed with the patient and according to patient's decision, he is full code. For hypok alemia, replace electrolytes per protocol. I will see him tomorrow morning for followup. TEJA/MODL Voice ID: [id number]
[2022-09-12 06:28] LABS: Potassium 4.3 mEq/L (3.5-5.1)
[2022-09-12] MEDS: ENOXAPARIN 40 MG/0.4 ML SQ SCH (08:44)
[2022-09-12] MEDS: METOPROLOL TAR 25 MG TAB PO SCH ×2 (08:45→21:00)
[2022-09-12] MEDS: AMLODIPINE 10 MG TAB PO SCH (08:46)
[2022-09-12] MEDS ORDERED: AMLODIPINE 10 MG TAB PO SCH (09:00)
[2022-09-12] MEDS: METHYLPREDNISOLONE 40 MG INJ IV SCH ×2 (10:12→17:58)
--- NOTE | 2022-09-12 10:21 | RAD REPORT ---
EXAM DESCRIPTION: CT - [facility] - 09/12/2022 10:04 am CLINICAL HISTORY: sob COMPARISON: 2018 CT chest and September 11, 2022 chest x-ray TECHNIQUE: Computed axial tomography of the chest was obtained. Contrast was not requested. All CT scans are performed using dose optimization technique as appropriate and may include automated exposure control or mA/KV adjustment according to patient size. FINDINGS: The evaluation of mediastinum, henri and vessels is limited secondary to lack of IV contras t administration. 5 centimeter left upper lobe opacity contains several small lucencies. Mild additional left upper lob e opacities. Two right upper lobe opacities are without significant change from the prior CT consistent with scar. 6 x 4 centimeter opacity anterior right upper lobe. COPD No mediastinal or hilar lymphadenopathy is seen. Small left pleural effusion. No pericardial effusion. Coronary arterial calcifications are present. IMPRESSION: 5 centimeter left upper lobe opacity containing small cavitations consistent with pneumo alex. This may represent an aerobic pneumonia, Klebsiella or TB/fungal 6 x 4 millimeter opacity anterior right upper lobe probably infection
[2022-09-12] MEDS ORDERED: METHYLPREDNISOLONE 40 MG INJ IV SCH (12:00)
[2022-09-12] MEDS ORDERED: AMOX/K CLAV 875 MG TAB PO ONE (13:00)
--- NOTE | 2022-09-12 15:17 | PN ---
Date of Progress Note: 09/12/2022 Subjective: Patient was seen this morning for followup. Vital signs reviewed. He is lying in bed, not in distress. His was with him at bedside. Overall, patient reports that he is feeling a lo t better today compared to yesterday. Physical Examination: Vital Signs: This morning, temperature 99.2, pulse 84, blood pressure 121/67. When I saw patient, h e was on room air and not using oxygen. Respiratory rate 20. HEENT: Unremarkable. Lungs: Bilateral good equal air entry, lot better air exchange today than yesterday. No rales. No wheezing. Somewhat diminished air entry in the left upper lobe compared to rest of the lung oh. Not using any accessory muscles of respiration. Heart: Heart sounds normal. Abdomen: Soft. Bowel sounds normal. No guarding, rigidity, tenderness, distention. Extremities: No leg edema. Laboratory Data: Sodium 138, potassium 4.3, chloride 107, bicarb 26, BUN 19, creatinine 1.21 and yes terday creatinine was 1.57, and glucose today is 99. Impression: 1.Pneumonia. 2.Acute exacerbation of chronic obstructive pulmonary disease. 3.Hypertension. 4.Hypokalemia. Plan: We will go ahead and continue current IV antibiotic, which is Levaquin. Continue nebulizer tr eatment. Patient has received Solu-Medrol 60 mg IV q.6 hours and I will reduce dose to 30 mg IV q.8 hours now. Continue amlodipine and metoprolol per order. Hold amlodipine if systolic blood pressure less than 130. Hold metoprolol if systolic blood pressure less than 120. We will get a CAT scan of the chest without contrast today and details were discussed with the patient and the patient's and we will repeat chest x-ray tomorrow. Possible discharge tomorrow depending on his condition. TEJA/MODL Voice ID: [id number] Report ID: [id number]
[2022-09-12] MEDS: Levofloxacin500mg IV 500 MG/100 ML BAG IV SCH (18:00)
[2022-09-12] MEDS ORDERED: METHYLPREDNISOLONE 125 MG INJ IV SCH (18:30)
[2022-09-12] MEDS: AMOX/K CLAV 875 MG TAB PO SCH (21:08)
[2022-09-13] MEDS: METHYLPREDNISOLONE 40 MG INJ IV SCH ×2 (00:29→08:38)
[2022-09-13] MEDS: ALBUTEROL 2.5 MG/3 ML NEB SOL NEB SCH ×2 (01:35→08:43)
[2022-09-13] MEDS: IPRATROPIUM BROM 0.5MG/2.5ML NEB SCH ×2 (01:35→08:43)
[2022-09-13] MEDS: ENOXAPARIN 40 MG/0.4 ML SQ SCH (08:29)
[2022-09-13] MEDS: METOPROLOL TAR 25 MG TAB PO SCH (08:33)
[2022-09-13] MEDS: AMOX/K CLAV 875 MG TAB PO SCH (08:34)
[2022-09-13] MEDS: AMLODIPINE 10 MG TAB PO SCH (08:38)
[2022-09-13 08:39] VITALS: BP 129/71
[2022-09-13 08:43] VITALS: TEMP 98
[2022-09-13 11:00] VITALS: O2SAT 96
--- NOTE | 2022-09-13 12:32 | RAD REPORT ---
[facility]AM DES[facility]13/[facility]22 8:43 am CLINICAL HISTORY: pneumonia COMPARISON: Chest Pa And Lat (2 Views) dated 09/11/2022; Chest Pa And Lat (2 Views) dated 07/15/2022; Chest Pa And Lat (2 Views) dated 12/13/2020; Chest Pa And Lat (2 Views) dated 05/21/2020hest Pa And Lat (2 Views) dated 09/11/2022; Chest Pa And Lat (2 Views) dated 07/15/2022; Chest Pa And Lat (2 Views) da luke 12/13/2020; Chest Pa And Lat (2 Views) dated 05/21/2020 TECHNIQUE: PA and lateral views of the chest. FINDINGS: Partial improvement of aeration in the left upper lobe. Linear opacity demarcating the inf erior margin of the involved region is stable, could relate to scarring. Background mild hyperinflati on. No pneumothorax or effusion. The cardiomediastinal contours are unremarkable. IMPRESSION: Partial improvement of aeration in the left upper lobe, may relate to improving pneumoni a.
--- NOTE | 2022-09-13 12:53 | DS ---
Date of Discharge: 09/13/2022 Disposition: Discharged to go home. Physical Examination: HEENT: Unremarkable. Lungs: Clear to auscultation. Heart: Sounds normal. Abdomen: Soft. Bowel sounds normal. No guarding, rigidity, tenderness, distention. Extremities: No leg edema. Laboratory Data: White count 7.8 upon admission with hemoglobin 12.6, platelets 232 with sodium 136, potassium 3.2, chloride 103, bicarb 23, BUN 26, creatinine 1.57, glucose 87. Liver function tests u nremarkable. Yesterday; sodium 138, potassium 4.3, chloride 107, bicarb 26, BUN 19, creatinine 1.21, glucose 99. CT scan of the chest from yesterday shows 5 cm left upper lobe opacity containing small cavitations consistent with pneumonia. There is a 6 x 4 mm opacity in the anterior right upper lobe . On 08/13/2015, the patient was noted to have 1.6 x 1.6 cm posterior right upper lobe density, whic h was new and additional 5 mm nodule in right lower lobe, which was new compared to 2013. Another CA T scan on 05/13/2018 showed posterior segment of right upper lobe density was smaller and it was 12 x 10 mm in size, and now it is 6 x 4 mm in size, so it is progressively getting smaller. Hospital Course: This is a 71-year-old very pleasant male patient, came into office with complaints of fever, shortness of breath, feeling weak and tired. Please see dictated H and P for more informat ion. The patient came into office and after he was evaluated, he was admitted to the hospital with a cute exacerbation of COPD and pneumonia. The patient was started on nebulizer treatment with albuter ol and Atrovent and IV antibiotic, Levaquin. He was also started on IV steroid. Initially, he was s tarted on Solu-Medrol 60 mg IV every 6 hours and as of yesterday we reduced dose to 40 mg IV every 8 hours. After CAT scan of the chest was done yesterday after looking at the report, we added Augmenti n 875 mg 2 times a day. The patient's overall condition has improved. His shortness of breath has i mproved very well. He is ambulating well without any problems. He does not have any expectoration, so no culture was done on the sputum. Today, he was discharged to go home in stable and improved con dition with following discharge medications and instructions. Final Diagnoses: 1.Pneumonia. 2.Acute exacerbation of chronic obstructive pulmonary disease. 3.Acute respiratory failure with hypoxia. 4.Pulmonary fibrosis. 5.Chronic kidney disease, stage 3A. 6.Hypokalemia. 7.Anemia, unspecified. 8.Hypertension. 9.Hyperlipidemia. 10.Peripheral vascular disease. 11.Gastroesophageal reflux disease. 12.Chronic constipation. 13.Coronary atherosclerosis. 14.Folic acid deficiency. Discharge Medications: 1.Continue all prior home medications. 2.Take following new medications and prescription will be sent to pharmacy;. a.Levaquin 500 mg, take 1 tablet by mouth daily for 10 days, take it with food. b.Augmentin 875 mg, take 1 tablet by mouth 2 times a day for 10 days, take it with food. c.Prednisone 10 mg, the patient to take 2 tablets daily for 4 days, then 1 tablet daily for 4 days, then half tablet daily for 4 days, then stop. 3.Follow up at my office next week. TEJA/MODL Voice ID: [id number] Report ID: [id number]
== END 2022-09-13 10:48 | disposition home or self-care (01) | DRG 193 ==
LOC: 2ND 17:42
PROVIDERS: ADMIT Internal Medicine; ATTEND Internal Medicine
DX: J18.9 Pneumonia, unspecified organism (principal); J96.01 Acute respiratory failure with hypoxia; J44.1 Chronic obstructive pulmonary disease with (acute) exacerbation; J44.0 Chronic obstructive pulmonary disease with (acute) lower respiratory infection; I12.9 Hypertensive chronic kidney disease with stage 1 through stage 4 chronic kidney disease, or unspecified chronic kidney disease; N18.31 Chronic kidney disease, stage 3a; E78.5 Hyperlipidemia, unspecified; J84.10 Pulmonary fibrosis, unspecified; E87.6 Hypokalemia; D64.9 Anemia, unspecified; I73.9 Peripheral vascular disease, unspecified; K59.09 Other constipation; E53.8 Deficiency of other specified B group vitamins; K21.9 Gastro-esophageal reflux disease without esophagitis; I25.10 Atherosclerotic heart disease of native coronary artery without angina pectoris; Z88.5 Allergy status to narcotic agent; Z79.899 Other long term (current) drug therapy
CPT/HCPCS: 36415; 71046; 71250; 80048; 80053; 83735; 85025; J1650; J2920; J7613; J7644